=== PATIENT | female | born 1940 | race Caucasian/White ===

== ENCOUNTER 2022-05-21 09:15 | Outpatient (CLI) | payer MEDICARE, SELFPAY | END 2022-05-21 09:16 | disposition home or self-care (01) | LOC: NFLDREF 05-22 07:02 | PROVIDERS: PCP Family Medicine; Referring Provider Family Medicine; Visit Provider Family Medicine | DX: E78.00 Pure hypercholesterolemia, unspecified (principal); E55.9 Vitamin D deficiency, unspecified; Z79.1 Long term (current) use of non-steroidal anti-inflammatories (NSAID) | CPT/HCPCS: 80053; 80061; 82306 ==

== ENCOUNTER 2022-10-27 13:44 | Outpatient (CLI) | payer MEDICARE, SELFPAY ==
--- NOTE | 2022-10-27 14:00 | CRLHL7_ITS ---
For Patients: As a result of the Century Cures Act, medical imaging exams and procedure reports are released immediately into your electronic medical record. You may view this report before your referring provider. If you have questions, please contact your health care provider. LEFT SCREENING MAMMOGRAM WITH COMPUTER-AIDED DETECTION AND TOMOSYNTHESIS TECHNIQUE: CC and MLO views were obtained. These mammographic images have been obtained using full-field digital technique. These mammographic images were interpreted with the benefit of computer-aided detection. Breast Tomosynthesis was used in this interpretation. COMPARISON FILM: 11/03/20, 01/29/19, 10/29/16. FINDINGS: The breasts are heterogeneously dense, which may obscure small masses IMPRESSION: There is no radiographic evidence for malignancy. ASSESSMENT: BI-RADS Category 1: Negative RECOMMENDATION: Routine screening mammogram in 1 year. A lay language report of this examination will be provided to the patient. Duke Maya M.D. Diagnostic/Nuclear Medicine Radiologist [email or web address] NATO/Dictated by: Duke Maya MD @ 10/28/2022 8:17:00 AM (Electronically Signed)
== END 2022-10-27 13:45 | disposition home or self-care (01) ==
LOC: MAMMO 13:45
PROVIDERS: PCP Family Medicine; Visit Provider Family Medicine
DX: Z12.31 Encounter for screening mammogram for malignant neoplasm of breast (principal); R92.2 Inconclusive mammogram
CPT/HCPCS: 77063; 77067

== ENCOUNTER 2024-07-02 19:52 | Emergency (ER) | payer MEDICARE, SELFPAY ==
--- OUTSIDE RECORDS SUMMARY | 2024-07-02 19:56 | XMS_ITS | Clinical Summary ---
Author Organization [facility] Address [address] [place] [address] Care Team Providers Care Carpet Binder Name Role Phone Mecca Cunningham MD Primary Care Provider + Allergies No known active allergies Medications No known medications Active Problems Problem Noted Date Diagnosed Date Diarrhea 03/17/2011 Overview (04/20/2011): Colonoscopy 03/2011 normal, recommend EGD. EGD 04/2011 normal Social History Tobacco Use Types Packs/Day Years Used Date Smoking Tobacco: Never Smokeless Tobacco: Never Tobacco Cessation:Counseling Given: Yes Alcohol Use Standard Drinks/Week Comments Not Asked 0 (1 standard drink = 0.6 oz pur e alcohol) Comments Unknown Sex and Gender Information Value Date Recorded Sex Assigned at Not on file Legal Sex Female 8:14 AM OUTPATIENT PHYSICAL THERAPIST Gender Identity Not on file Sexual Orientation Not on file Obstetrics History Last Filed Vital Signs Vital Sign Reading Time Taken Comments Blood Pressure 126/83 07/04/2015 4:40 PM CDT Pulse 78 07/04/2015 4:40 PM CDT Temperature 37.3 C (99.2 F) 07/04/2015 4:40 PM CDT Respiratory Rate - - Oxygen Saturation 98% 07/04/2015 4:40 PM CDT Inhaled Oxygen Concentration - - Weight 59.5 kg (131 lb 3.2 oz) 07/04/2015 4:40 P M CDT Height 161.3 cm (5' 3.5) 07/04/2015 4:40 PM CDT Body Mass Index 22.87 07/04/2015 4:40 PM CDT Plan of Treatment Health Maintenance Due Date Last Done Comments Tdap 09/12/1950 Depression screening for age 12+ 1951 Tetanus booster 1959 Pneumococcal series for age 50+ (1 of 1 - PCV) 09/12/1989 Zoster (shingles) series for age 50+ (1 of 2) 09/12/1989 DEXA/DXA scan for age 65+ 09/12/2004 RSV vaccine for adults or pr egnancy (1 - 1-dose 75+ series) 09/12/2014 BMI (ht and wt on same day) for age 18+ 07/03/2016 07/04/2015 COVID-19 vaccine series (2023- season) 2023 12/12/2020, 04/30/2020, 04/09/2020 Influenza Vaccine (Season Ended) 2024 Insurance [employer] MED[employer]ARE ADVANTAGE MR Care Teams Carpet Binder Relationship Specialty Start Date End Date Mecca Cunningham MD [address] [place] [address] PCP - General Family Practice 02/03/21
--- OUTSIDE RECORDS SUMMARY | 2024-07-02 19:56 | XMS_ITS | Encounter Summary ---
Author Organization [facility] Address [address] [place] [address] Care Team Providers Care Supervisor Rolling Room Name Role Phone Linn Robbins M.D. Primary Care Provider +1- [phone] Encounter Details Date Type Department Care Team (Late st Contact Info) Description 05/11/2004 Historical Ophthalmology RST OPH Philip Starr O.D., Ph.D. 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 - 05/11/2004 12:00 AM CST Eye General CHIEF COMPLAINT Cataract evaluation and general eye exam for glasses HISTORY OF PRESENT ILLNESS Patient referred for cataract evaluation. She also expresses interest in making sure her glass prescription is correct. She notes that sometimes she prefers her old glasses for distance. She expressed this discontent with her glasses with her hometown physician who made adjustments. She felt that it did not help and when she talked to her physician about this he expressed the problem was cataracts. She is seen every 6 months at home for Pressure checks, she is using Travatan drops for this. Shenotes her overall vision has diminished over the past 2 years, especially with near vision. She is sensitive to light. She treats her dry eyes with warm compresses and Genteal ointment. She has intermittent floaters. Denies flashes of light and diplopia. IMPRESSION / REPORT / PLAN #1 Hx of apparent ocular hypertension Plan: Cup/disc is normal, IOP's in normal range now, but she is on Travatan. She wants to switch care to . Pt will finish current Travatan, then D/C for one month. Then RTC to for VA/TA. #2 Meibomian gland dysfunction both eyes. Plan: gave patient eyelid hygiene instructions. #3 Refractive error (myopic astigmatism, presbyopia). Plan: spectacle prescription (Refraction 2) given. 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 #3 Refractive error (myopic astigmatism, presbyopia). CDM Reports - EYEGEN Id: [id number] Status: Fnl documented in this encounter Plan of Treatment Upcoming Encounters Date Type Department Care Team (Latest Contact Info) Description 10/08/2024 2:20 PM CDT Comprehensive Visit Department of Family Medicine, [facility], in [address] [phone] Linn Robbins M.D. [address] [place] [phone] Discharge Disposition: Home or Self Care 10/08/2024 2:45 PM CDT Office Visit Department of Family Medicine, [facility], in [address] [phone] Linn Robbins M.D. [address] [place] [phone] Discharge Disposition: Home or Self Care documented as of this encounter Visit Diagnoses Not on filedocumented in this encounter Care Teams Supervisor Rolling Room Relationship Specialty Start Date End Date Linn Robbins M.D. [address] [place] [phone] PCP - General Family Medicine 09/12/23 documented as of this encounter
--- OUTSIDE RECORDS SUMMARY | 2024-07-02 19:56 | XMS_ITS | Encounter Summary ---
Author Organization [facility] Address [address] [place] [address] Care Team Providers Care Title Insurance Examiner Name Role Phone Linn Robbins M.D. Primary Care Provider +1- [phone] Encounter Details Date Type Department Care Team (Late st Contact Info) Description 04/30/2005 Historical Ophthalmology RST OPH Philip Starr O.D., Ph.D. 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 - 04/30/2005 12:00 AM CST Eye Subsequent Visit HISTORY OF PRESENT ILLNESS Vision seems better, can read again. Continues to use artificial tears during the day every 2 hr both eyes, and artificial tear ointment at night. IMPRESSION / REPORT / PLAN #1 Ocular hypertension Plan: Resume Travatan 1 drop at bedtime both eyes #2 Dry eye #3 Superficial punctate keratitis Plan: Continue Genteal artificial tears during day and ointment at night #4 Refractive error (myopic astigmatism, presbyopia). Plan: spectacle prescription (Refraction 1) given. Change left lens. RTC 3 mth to recheck IOP and corneas. DIAGNOSIS #1 Ocular hypertension #2 Dry eye #3 Superficial punctate keratitis #4 Refractive error (myopic astigmatism, presbyopia). CDM Reports - EYESV Id: [id number] Status: Fnl documented in this encounter Plan of Treatment Upcoming Encounters Date Type Department Care Team (Latest Contact Info) Description 10/08/2024 2:20 PM CDT Comprehensive Visit Department of Family Medicine, [facility], [address] [address] Linn Robbins M.D. [address] [place] [phone] Discharge Disposition: Home or Self Care 10/08/2024 2:45 PM CDT Office Visit Department of Family Medicine, [facility], [address] [address] Linn Robbins M.D. [address] [place] [phone] Discharge Disposition: Home or Self Care documented as of this encounter Visit Diagnoses Not on filedocumented in this encounter Care Teams Title Insurance Examiner Relationship Specialty Start Date End Date Linn Robbins M.D. [address] [place] [phone] PCP - General Family Medicine 09/12/23 documented as of this encounter
--- OUTSIDE RECORDS SUMMARY | 2024-07-02 19:56 | XMS_ITS | Encounter Summary ---
Author Organization [facility] Address [address] [place] [address] Care Team Providers Care Rail Car Repairman Name Role Phone Linn Robbins M.D. Primary Care Provider +1- [phone] Encounter Details Date Type Department Care Team (Late st Contact Info) Description 03/17/2006 Historical Ophthalmology RST OPH Philip Starr O.D., Ph.D. 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 - 03/17/2006 8:50 AM CST Eye General HISTORY OF PRESENT ILLNESS Here to have corneas checked and IOPs. Using Travatan HS both eyes and Genteal artificial tears approx bid both eyes during the day with Genteal emily at night. Denies flashes, new floaters, diplopia, eye pain. Near vision somewhat more difficult. IMPRESSION / REPORT / PLAN #1 Refractive error (myopic astigmatism, presbyopia). Plan: spectacle prescription (Refraction 2) given. #2 Ocular hypertension, with pressure in normal range with Travatan Plan: Continue Travatan 1 drop each eye bedtime. Optic discs normal #3 Meibomian gland dysfunction both eyes. Plan: gave patient eyelid hygiene instructions and sheet ( # 4113-02). #4 Cataract Plan: Monitor RTC 1 yr or PRN DIAGNOSIS #1 Refractive error (myopic astigmatism, presbyopia). #2 Ocular hypertension, with pressure in normal range with Travatan #3 Meibomian gland dysfunction both eyes. #4 Cataract CDM Reports - EYEGEN Id: [id number] Status: Fnl documented in this encounter Plan of Treatment Upcoming Encounters Date Type Department Care Team (Latest Contact Info) Description 10/08/2024 2:20 PM CDT [facility] [address] [phone] Linn Robbins M.D. [address] [place] [phone] Discharge Disposition: Home or Self Care 10/08/2024 2:45 PM CDT Office Visit Department of Family Medicine, [facility], in [address] [phone] Linn Robbins M.D. [address] [place] [phone] Discharge Disposition: Home or Self Care documented as of this encounter Visit Diagnoses Not on filedocumented in this encounter Care Teams Rail Car Repairman Relationship Specialty Start Date End Date Linn Robbins M.D. [address] [phone] PCP - General Family Medicine 09/12/23 documented as of this encounter
--- OUTSIDE RECORDS SUMMARY | 2024-07-02 19:56 | XMS_ITS | Encounter Summary ---
Author Organization [facility] Address [address] [place] [address] Care Team Providers Care Boot Lace Cutter Machine Name Role Phone Linn Robbins M.D. Primary Care Provider +1- [phone] Encounter Details Date Type Department Care Team (Late st Contact Info) Description 04/02/2005 Historical Ophthalmology RST OPH Philip Starr O.D., Ph.D. 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 - 04/02/2005 12:00 AM CST Eye Subsequent Visit HISTORY OF PRESENT ILLNESS Insurance caused her to switch from Travatan to Xalatan on 03/01/05. Noted after one week that vision seems blurred far and near. Hasn't checked one eye vs the other. Discontinued Xalatan on 03/24/05 and resumed Travatan due to change in insurance coverage.. IMPRESSION / REPORT / PLAN #1 Blurred vision #2 Superficial punctate keratitis Plan: Discontinue Travatan, use artificial tears 4 X daily RTC to wlb one week to check. DIAGNOSIS #1 Blurred vision #2 Superficial punctate keratitis CDM Reports - EYESV Id: [id number] Status: Fnl documented in this encounter Plan of Treatment Upcoming Encounters Date Type Department Care Team (Latest Contact Info) Description 10/08/2024 2:20 PM CDT Comprehensive Visit Department of Family Medicine, [facility], in [address] [phone] Linn Robbins M.D. [address] [place] [phone] Discharge Disposition: Home or Self Care 10/08/2024 2:45 PM CDT Office Visit Department of Family Medicine, [facility], in [address] [phone] Linn Robbins M.D. [address] [place] [phone] Discharge Disposition: Home or Self Care documented as of this encounter Visit Diagnoses Not on filedocumented in this encounter Care Teams Boot Lace Cutter Machine Relationship Specialty Start Date End Date Linn Robbins M.D. [address] [place] [phone] PCP - General Family Medicine 09/12/23 documented as of this encounter
--- OUTSIDE RECORDS SUMMARY | 2024-07-02 19:56 | XMS_ITS | Encounter Summary ---
Author Organization [facility] Address [address] [place] [address] Care Team Providers Care Thermite Welder Name Role Phone Linn Robbins M.D. Primary Care Provider +1- [phone] Encounter Details Date Type Department Care Team (Late st Contact Info) Description 09/03/2004 Historical Ophthalmology RST OPH Philip Starr O.D., Ph.D. 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 - 09/03/2004 12:00 AM CDT Eye General CHIEF COMPLAINT ocular hypertension follow up HISTORY OF PRESENT ILLNESS D/C Travatan July 24, 2004. IMPRESSION / REPORT / PLAN #1 Ocular hypertension Plan: Intraocular pressures are just higher than normal range with no drops, but corneas are thinner than normal, so effective IOP is even higher. Based on Ocular hypertension treatment study results, we will resume Travatan 1 drop HS both eyes. RTC 1 yr DIAGNOSIS #1 Ocular hypertension CDM Reports - EYEGEN Id: [id number] Status: Fnl documented in this encounter Plan of Treatment Upcoming Encounters Date Type Department Care Team (Latest Contact Info) Description 10/08/2024 2:20 PM CDT Comprehensive Visit Department of Family Medicine, [facility], [address] [phone] Linn Robbins M.D. [address] [place] [phone] Discharge Disposition: Home or Self Care 10/08/2024 2:45 PM CDT Office Visit Department of Family Medicine, [facility], in [address] [phone] Linn Robbins M.D. [address] [place] [phone] Discharge Disposition: Home or Self Care documented as of this encounter Visit Diagnoses Not on filedocumented in this encounter Care Teams Thermite Welder Relationship Specialty Start Date End Date Linn Robbins M.D. [address] [place] [phone] PCP - General Family Medicine 09/12/23 documented as of this encounter
--- OUTSIDE RECORDS SUMMARY | 2024-07-02 19:56 | XMS_ITS | Encounter Summary ---
Author Organization [facility] Address [address] [place] [address] Care Team Providers Care Traffic Control Officer Name Role Phone Linn Robbins M.D. Primary Care Provider +1- [phone] Encounter Details Date Type Department Care Team (Late st Contact Info) Description 04/09/2005 Historical Ophthalmology RST OPH Philip Starr O.D., Ph.D. Social History Tobacco Use Types Packs/Day Years Used Date Smoking Tobacco: Never Assessed Comments Unknown Sex and Gender Information Value Date Recorded Sex Assigned at Female 11/28/2017 2:01 PM CDT Legal Sex Female 9:49 AM EXERCISE SPECIALIST Gender Identity Female 11/28/2017 2:01 PM CDT Sexual Orientation Straight 10/02/2023 1: 27 PM CDT documented as of this encounter Progress Notes * Philip Starr O.D., Ph.D. - 04/09/2005 12:00 AM CST Eye Subsequent Visit HISTORY OF PRESENT ILLNESS Thinks eyes feel better now. IMPRESSION / REPORT / PLAN #1 Superficial punctate keratitis Plan: Improving. Continue artificial tears during the day and ointment at bedtime. RTC 2-3 wks to wlb to recheck. Continue no Travatan DIAGNOSIS #1 Superficial punctate keratitis CDM Reports - EYESV Id: [id number] Status: Fnl documented in this encounter Plan of Treatment Upcoming Encounters Date Type Department Care Team (Latest Contact Info) Description 10/08/2024 2:20 PM CDT Comprehensive Visit Department of Family [facility], [facility], [address] [phone] Linn Robbisn M.D. [address] [place] [phone] Discharge Disposition: Home or Self Care 10/08/2024 2:45 PM CDT Office Visit Department of Family Medicine, [facility], in [address] [phone] Linn Robbins M.D. [address] [place] [phone] Discharge Disposition: Home or Self Care documented as of this encounter Visit Diagnoses Not on filedocumented in this encounter Care Teams Traffic Control Officer Relationship Specialty Start Date End Date Linn Robbins M.D. [address] [place] [phone] PCP - General Family Medicine 09/12/23 documented as of this encounter
--- OUTSIDE RECORDS SUMMARY | 2024-07-02 19:57 | XMS_ITS | Encounter Summary ---
Author Organization [facility] Address [address] [place] [address] Care Team Providers Care Air Bag Builder Name Role Phone Linn Robbins M.D. Primary Care Provider +1- [phone] Encounter Details Date Type Department Care Team (Late st Contact Info) Description 11/23/2010 Historical Ophthalmology RST OPH Philip Starr O.D., Ph.D. 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 - 11/23/2010 1:11 PM CDT Eye General HISTORY OF PRESENT ILLNESS Has had glasses for three years and thinks needs more power for reading. Has history of dry eyes and uses PRN artificial tears. Uses Travatan daily. No flashes, floaters, diplopia or ocular pain. IMPRESSION / REPORT / PLAN #1 Refractive error (myopic astigmatism, presbyopia). Plan: Minimal change in spectacle prescription recommended, spectacle prescription (Refraction 1) given. #2 Meibomian gland dysfunction both eyes. Plan: use artificial tears prn, gave patient eyelid hygiene instructions. #3 Ocular hypertension Plan: Continue Travatan 1 drop each eye bedtime. Optic discs normal #4 Cataract, mildly visually significant Plan: Monitor Recommend RTC 1 yr DIAGNOSIS #1 Refractive error (myopic astigmatism, presbyopia). #2 Meibomian gland dysfunction both eyes. #3 Ocular hypertension #4 Cataract, mildly visually significant CDM Reports - EYEGEN Id: [id number] Status: Fnl documented in this encounter Plan of Treatment Upcoming Encounters Date Type Department Care Team (Latest Contact Info) Description 10/08/2024 2:20 PM CDT Comprehensive Visit Department of Family Medicine, [facility], [address] [phone] Linn Robbins M.D. [address] [place] [phone] Discharge Disposition: Home or Self Care 10/08/2024 2:45 PM CDT Office Visit Department of Family Medicine, [facility], in [address] [phone] Linn Robbins M.D. [address] [place] [phone] Discharge Disposition: Home or Self Care documented as of this encounter Visit Diagnoses Not on filedocumented in this encounter Care Teams Air Bag Builder Relationship Specialty Start Date End Date Linn Robbins M.D. [address] [place] [phone] PCP - General Family Medicine 09/12/23 documented as of this encounter
--- OUTSIDE RECORDS SUMMARY | 2024-07-02 19:57 | XMS_ITS | Encounter Summary ---
Author Organization [facility] Address [address] [place] [address] Care Team Providers Care Correctional Substance Abuse Counselor Name Role Phone Linn Robbins M.D. Primary Care Provider +1- [phone] Reason for Referral * Outpatient (Routine) - Authorized Specialty Diagnoses / Procedures Referred By Lilian roach Referred To Contact Dermatology Diagnoses Screening Examination Skin Cancer Ashleigh Bell M.D. [address] [place] [phone] Phone: tel: fax: [facility] Region Referral ID Status Reason Start Date Expiration Date V isits Requested Visits Authorized [id number] Authorized 06/27/2024 12/27/2025 1 1 Reason for Visit * Reason Comments Pre-op Exam Hip Referral Derm froilan Infante ed cheeks * Appointment Request (Routine) - Closed Specialty Diagnoses / Procedures Referred By Contteo t Referred To Contact Family Medicine Referral ID Status Reason Start Date Expiration Date Visits Re quested Visits Authorized [id number] Closed 06/27/2024 09/27/2025 1 1 Encounter Details Date Type Department Care Team (Latest Contact Info) Description 06/27/2024 3:00 PM CDT Office Visit Department of Family Medicine, [facility], in [address] [phone] Ashleigh Bell M.D. [address] [place] [phone] Preoperative Exam (Primary Dx); Primary Osteoarthritis Hip Left; Screening Examination Skin Cancer Discharge Disposition: Home or Self Care Social History Tobacco Use Types Packs/Day Years Used Date Smoking Tobacco: Never Smokeless Tobacco: Never Tobacco Cessation:Counseling Given: Not Answered Alcohol Use Standard Drinks/Week Comments Yes 1 (1 standard drink = 0.6 oz pur e alcohol) [facility] Answer Date Recorded In the past 12 months has e [employer], oil, or water [employer] threatened to shut off services in your home? No 10/02/2023 Humiliation, Afraid, Rape, and Kick questionnair e Answer Date Recorded Within the last year, have y ou been afraid of your partner or ex-partner? No 10/07/2023 Within the last year, have y ou been humiliated or emotionally abused in other ways by your partner or ex-partner? No Within the last year, have y ou been kicked, hit, slapped, or otherwise physically hurt by your partner or ex-partner? No 10/07/2023 Within the last year, have y ou been raped or forced to have any kind of sexual activity by your partner or ex-partner? No 10/07/2023 PHQ-2 Answer Date Recorded PHQ-2 Score 0 05/22/2024 Exercise Vital Sign Answer Date Recorde d On average, how many days pe r week do you engage in moderate to strenuous exercise (like a brisk walk)? 7 days 10/02/2023 On average, how many minutes do you engage in exercise at this level? 70 min 10/02/2023 Hunger Vital Sign Answer Date Recorded Within the past 12 months, y ou worried that your food would run out before you got the money to buy more. Never true 10/02/19 Within the past 12 months, t he food you bought just didn't last and you didn't have money to get more. Never true 10/02/2023 PRAPARE - Transportation Answer Date Re corded In the past 12 months, has l ack of transportation kept you from medical appointments or from getting medications? No 09/05 In the past 12 months, has l ack of transportation kept you from meetings, work, or from getting things needed for daily living? No 10/02/2023 Nutrition Answer Date Recorded On average, how many serving s of fruits and vegetables do you eat per day (serving size is equal to 1 cup or approximately the size of a tennis ball)? 5 or more 10/02/2023 Dental Answer Date Recorded Dental: Regular Dentist Yes 10/02/19 Employment Answer Date Recorded Employment status Retired 10/02/2023 Housing Stability Answer Date Recorded What is your living situation today? 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 Gender Identity Female 11/28/2017 2:01 PM CDT Sexual Orientation Straight 10/02/2023 1: 27 PM CDT documented as of this encounter Last Filed Vital Signs Vital Sign Reading Time Taken Comments Blood Pressure 134/80 06/27/2024 2:55 PM CDT Pulse 80 06/27/2024 2:55 PM CDT Temperature 36.7 C (98.1 F) 06/27/2024 2:55 PM CDT Respiratory Rate - - Oxygen Saturation 98% 06/27/2024 2:55 PM CDT Inhaled Oxygen Concentration - - Weight 56.2 kg (123 lb 14.4 oz) 06/27/2024 2:55 PM CDT Height 159 cm (5' 2.6) 06/27/2024 2:55 PM CDT Body Mass Index 22.23 06/27/2024 2:55 PM CDT documented in this encounter Patient Instructions * Patient Instructions* Ashleigh Bell M.D. - 06/27/2024 3:00 PM CDT Preoperative instructions discussed and understanding indicated: Follow all preop hospital/center instructions. IF TAKING ASPIRIN/NSAIDs/Ibuprofen: Stop aspirin/NSAIDs 1 week before procedure and resume 1 dayafter the procedure unless instructed otherwise. IF TAKING SUPPLEMENTS: Stop all supplements 1 week prior to procedure and may resume 1 day afterthe procedure unless instructed otherwise. Okay to continue Tylenol as needed through the surgery documented in this encounter Plan of Treatment Upcoming Encounters Date Type Department Care Team (Latest Contact Info) Description 10/08/2024 2:20 PM CDT Comprehensive Visit Department of Family Medicine, [facility], [address] [phone] Linn Robbins M.D. [address] [place] [phone] Discharge Disposition: Home or Self Care 10/08/2024 2:45 PM CDT Office Visit Department of Family Medicine, [facility], [address] [phone] Linn Robbins M.D. [address] [place] [phone] Discharge Disposition: Home or Self Care Scheduled Referrals Name Type Priority Associated Diagnoses Orde r Schedule Dermatology - Skin check consult (clinic) Outpatient Referral Routine Screening Examination Skin Cancer Expected: 06/27/2024, Expires: 09/26/2025 documented as of this encounter Results * (ABNORMAL) Basic Metabolic Panel (06/27/2024 4:04 PM CDT) Potassium, P 5.2 3.6 - 5.2 mmol/L 06/27/2024 4:22 PM CDT CNFL Sodium, P 139 135 - 145 mmol/L 06/27/2024 4:22 PM CDT CNFL Chloride, P 104 98 - 107 mmol/L 06/27/2024 4:22 PM CDT CNFL Bicarbonate, P 29 22 - 29 mmol/L 06/27/2024 4:22 PM CDT CNFL Anion Gap, P 6(L) 7 - 15 06/27/2024 4:22 PM CDT CNFL BUN (Blood Urea Nitrogen), P 26(H) 6 - 21 mg/dL 06/27/2024 4:22 PM CDT CNFL Creatinine 0.84 0.59 - 1.04 mg/dL 06/27/2024 4:22 PM CDT CNFL Estimated GFR (eGFR) 68 >=60 mL/min/BSA 06/27/2024 4:22 PM CDT CNFL Comment: Estimated GFR calculated using the 2020 CKD_EPI creatinine equation. Calcium, Total, P 10.1 8.8 - 10.2 mg/dL 06/27/2024 4:22 PM CDT CNFL Glucose, P 96 70 - 140 mg/dL 06/27/2024 4:22 PM CDT CNFL Blood (Blood, Venous) 06/27/2024 4:04 PM CDT 06/27/2024 4:05 PM CDT us Ashleigh Bell M.D. LAB BLOOD ADD-ON Final Resu lt [facility] [address] [place] [address], [facility] CNFL [place] [address] * CBC with Differential, Blood (06/27/2024 4:04 PM CDT) Hemoglobin 13.1 11.6 - 15.0 g/dL 06/27/2024 4:08 PM CDT CNFL Hematocrit 41.2 35.5 - 44.9 % 06/27/2024 4:08 PM CDT CNFL Erythrocytes 4.61 3.92 - 5.13 x10(12)/L 06/27/2024 4:08 PM CDT CNFL MCV 89.4 78.2 - 97.9 fL 06/27/2024 4:08 PM CDT CNFL RBC Distrib Width 14.1 12.2 - 16.1 % 06/27/2024 4:08 PM CDT CNFL Platelet Count 225 157 - 371 x10(9)/L 06/27/2024 4:08 PM CDT CNFL Leukocytes 7.2 3.4 - 9.6 x10(9)/L 06/27/2024 4:08 PM CDT CNFL Neutrophils 3.49 1.56 - 6.45 x10(9)/L 06/27/2024 4:08 PM CDT CNFL Lymphocytes 3.00 0.95 - 3.07 x10(9)/L 06/27/2024 4:08 PM CDT CNFL Monocytes 0.57 0.26 - 0.81 x10(9)/L 06/27/2024 4:08 PM CDT CNFL Eosinophils 0.07 0.03 - 0.48 x10(9)/L 06/27/2024 4:08 PM CDT CNFL Basophils <0.04 0.01 - 0.08 x10(9)/L 06/27/2024 4:08 PM CDT CNFL Blood (Blood, Venous) 06/27/2024 4:04 PM CDT 06/27/2024 4:05 PM CDT us Ashleigh Bell M.D. LAB BLOOD ADD-ON Final Resu lt [facility] [address] [place] [phone], [facility] CNFL [facility] in [address] [address] documented in this encounter Visit Diagnoses Diagnosis Preoperative Exam- Primary Primary Osteoarthritis Hip Left Screening Examination Skin Cancer documented in this encounter Care Teams Correctional Substance Abuse Counselor Relationship Specialty Start Date End Date Linn Robbins M.D. [address] [place] [phone] PCP - General Family Medicine 09/12/23 documented as of this encounter
--- OUTSIDE RECORDS SUMMARY | 2024-07-02 19:57 | XMS_ITS | Encounter Summary ---
Author Organization [facility] Address [address] [place] [address] Care Team Providers Care Dry Wall Installer Name Role Phone Linn Robbins M.D. Primary Care Provider +1- [phone] Reason for Referral * Outpatient (Routine) - Closed Specialty Diagnoses / Procedures Referred By Contac t Referred To Contact Diagnoses Pain Knee Left Procedures DX Knee Left 3 Views Linn Robbins M.D. [address] [place] [phone] Phone: tel: fax: [facility] Region Referral ID Status Reason Start Date Expiration Date Visits Re quested Visits Authorized [id number] Closed 05/29/2024 08/29/2025 1 1 * Outpatient (Routine) - Closed Specialty Diagnoses / Procedures Referred By Contac t Referred To Contact Diagnoses Pain Low Back Unspecified Pain Sacroiliac Procedures DX Lumbar Spine 2-3 Views Linn Robbins M.D. [address] [place] [phone] Phone: tel: fax: [facility] Referral ID Status Reason Start Date Expiration Date Visits Re quested Visits Authorized [id number] Closed 05/29/2024 08/29/2025 1 1 Reason for Visit * Reason Comments Back and leg issues Did have a fall last February. Fell on steps and thinks she did hit her lower back. 2 weeks later she started have pain in her buttocks down through her legs. No shooting pain but constant. Walks can help and does take naproxen. Did have vein surgery by Jonna in December but is still having pain in the right leg from this. Going uphill and steps hurts worse in her left leg from knee up to her hip and also any weight bearing. Rated at an 8 for pain when going up stairs. * Appointment Request (Routine) - Closed Specialty Diagnoses / Procedures Referred By Lilian roach Referred To Contact Family Medicine Referral ID Status Reason Start Date Expiration Date Visits Re quested Visits Authorized [id number] Closed 05/18/2024 08/18/2025 1 1 Encounter Details Date Type Department Care Team (Latest Contact Info) Description 05/29/2024 10:00 AM CDT Office Visit Department of Family Medicine, [facility], in [address] [phone] Linn Robbins M.D. [address] [place] [phone] Primary Osteoarthritis Hip Left (Primary Dx); Pain Low Back Unspecified; Pain Sacroiliac; Pain Knee Left Discharge Disposition: Home or Self Care Social History Tobacco Use Types Packs/Day Years Used Date Smoking Tobacco: Never Smokeless Tobacco: Never Alcohol Use Standard Drinks/Week Comments Yes 1 (1 standard drink = 0.6 oz pur e alcohol) [facility] Utilities Answer Date Recorded In the past 12 months has th e [employer], gas, oil, or water [employer] threatened to shut off services in your [...] your living situation today? 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 - 05/29/2024 10:00 AM CDT DATE OF VISIT: 05/29/2024 SUBJECTIVE CHIEF COMPLAINT / REASON FOR VISIT Agata Espana is a 83 y.o. female who presents for evaluation of Back and leg issues (Did have afall last February. Fell on steps and thinks she did hit her lower back. 2 weeks later she started have pain in her buttocks down through her legs. No shooting pain but constant. Walks can help and does take naproxen. Did have vein surgery by Jonna in December but is still having pain in the right leg from this. Going uphill and steps hurts worse in her left leg from knee up to her hip and also any weight bearing. Rated at an 8 for pain when going up stairs. ). The patient verbally consented to an audio recording of their visit to assist with the completion of documentation. History of Present Illness Mrs. Agata Espana is an 83 year old female who presents with back and leg pain following a fall. She experienced back and leg pain following a fall on March 05, when she slipped on ice and landed on her back. Initially, there was no significant pain, and she continued her walk. However, approximately two weeks later, she began experiencing aching pain in the buttocks and lower legs, severe enough to impair her ability to walk for a few days. The pain improved with naproxen and Tylenol but recurred later. The pain is described as an intense ache in the buttocks, radiating down both legs, exacerbated by weight-bearing activities such as walking up or down stairs and on inclines. She notes difficulty performing activities like cutting toenails, tying shoes, and picking up items from the floor due to pain, particularly on the inside of the leg. A persistent low back ache is present, especially in themorning, which improves slightly with walking but never fully resolves. She reports issues with her right leg following a vein procedure on December 07. Post-procedure, she experiences aching and pulling pain in the leg, particularly when walking, which improves with rest. There is a hard area in the leg where an injection was administered, but the pain is less intensethan before the procedure. She has a history of arthritis in the knee, previously managed with stem cell treatment, providing relief for seven years. She now experiences knee pain, particularly when weight-bearing. OBJECTIVE VITAL SIGNS BP 158/88 (BP Location: Left arm, Patient Position: Sitting, Cuff Size: Regular) Pulse 75 Temp 36.4 ??C Wt 55.4 kg SpO2 98% BMI 21.78 kg/m?? Physical Exam Constitutional General: She is not in acute distress. Appearance: Normal appearance. Pulmonary Effort: Pulmonary effort is normal. Musculoskeletal Comments: There is tenderness to palpation over the right SI joint. Left hip with limited flexion compared to the right. She experiences severe pain with internal rotation of the left hip. No swelling or bruising of the left hip or knee. Gait normal. Neurological Mental Status: She is alert. Mental status is at baseline. Psychiatric Mood and Affect: Mood normal. Behavior: Behavior normal. ASSESSMENT / PLAN #1 Primary Osteoarthritis Hip Left #2 Pain Low Back Unspecified #3 Pain Sacroiliac #4 Pain Knee Left Patient has chronic left hip pain due to osteoarthritis, which is exacerbated following a fall in February. She also seems to have pain coming from her SI joints, particularly on the right, after thesame fall. Will obtain updated x- rays today. She is encouraged to follow up with Orthopedics and she prefers to see Dr. Rahman in [place], which is closer to her home. She declines need for physical therapy referral today. documented in this encounter Plan of Treatment Upcoming Encounters Date Type Department Care Team (Latest Contact Info) Description 10/08/2024 2:20 PM CDT Comprehensive Visit Department of Family Medicine, [facility], [address] [phone] Linn Robbins M.D. [address] [place] [phone] Discharge Disposition: Home or Self Care 10/08/2024 2:45 PM CDT Office Visit Department of Family [facility], [facility], in [address] [phone] Linn Robbins M.D. [address] [place] [phone] Discharge Disposition: Home or Self Care documented as of this encounter Results * DX Lumbar Spine 2-3 Views (05/29/2024 10:49 AM CDT) Anatomical Region Laterality Modality Lumbar Spine, Musculoskeleta l RST LOS, Neuroradiology ARZ LOS, Muskuloskeletal FLA LOS N/A Digital Radiography Impressions 05/29/2024 11:04 AM CDT There are 5 lumbar type vertebra. The lumbar vertebral body heights are maintained. Grade 1 anterolisthesis L4 on L5. Advanced degenerative disc disease at L4-L5. Lower lumbar facet arthropathy. Mild degenerative changes both SI joints and right hip. Moderate degenerative changes left hip. No pelvic fracture. Calcified uterine fibroids and pelvic phleboliths. Narrative 05/29/2024 11:04 AM CDT EXAM: DX HIPS AND PELVIS BILATERAL 5+ VIEWS, DX LUMBAR SPINE 2-3 VIEWS us Linn Robbins M.D. [facility] PRO CEDURES Final Result * DX Knee Left 3 Views (05/29/2024 10:47 AM CDT) Anatomical Region Laterality Modality Lower Extremity, Knee, Muscu loskeletal RST LOS, Musculoskeletal ARZ LOS, Muskuloskeletal FLA LOS Left Digit al Radiography Impressions 05/29/2024 11:04 AM CDT Moderate tricompartmental osteoarthritis greatest in the lateral compartment. Narrative 05/29/2024 11:04 AM CDT EXAM: DX KNEE LEFT 3 VIEWS COMPARISON: Radiograph 08/25/2015 FINDINGS: No fracture. No dislocation. There is moderate tricompartmental space narrowing most notably in the lateral compartment. Medial lateral compartment osteophytic spurring. Trace joint effusion. No patellar tilt or subluxation. Soft tissues are unremarkable. Procedure Note Maximo Pagan M.D. - 05/29/2024 EXAM: DX KNEE LEFT 3 VIEWS COMPARISON: Radiograph 08/25/2015 FINDINGS: No fracture. No dislocation. There is moderate tricompartmental spacenarrowing most notably in the lateral compartment. Medial lateralcompartment osteophytic spurring. Trace joint effusion. No patellar tiltor subluxation. Soft tissues are unremarkable. IMPRESSION: Moderate tricompartmental osteoarthritis greatest in the lateralcompartment. us Linn Robbins M.D. [facility] PRO CEDURES Final Result documented in this encounter Visit Diagnoses Diagnosis Primary Osteoarthritis Hip Left- Primary Pain Low Back Unspecified Pain Sacroiliac Pain Knee Left Pain Knee Left Pain Low Back Unspecified Pain Sacroiliac documented in this encounter Care Teams Dry Wall Installer Relationship Specialty Start Date End Date Linn Robbins M.D. [address] [place] [phone] PCP - General Family Medicine 09/12/23 documented as of this encounter
--- OUTSIDE RECORDS SUMMARY | 2024-07-02 19:57 | XMS_ITS | Encounter Summary ---
Author Organization [facility] Address [address] [place] [id number] Care Team Providers Care Paper Tube Cutter Name Role Phone Linn Robbins M.D. Primary Care Provider +1- [phone] Encounter Details Date Type Department Care Team (Late st Contact Info) Description 05/18/2007 Historical Ophthalmology RST OPH Philip Starr O.D., Ph.D. 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 - 05/18/2007 9:43 AM CDT Eye General HISTORY OF PRESENT ILLNESS No visual or ocular complaints. Using Travatan at night one drop each eye. Has not been using warm compresses, has forgotten about it, so she feels her lids must be doing better. Uses artificial tears 2X daily. IMPRESSION / REPORT / PLAN #1 Refractive error (myopic astigmatism, presbyopia). Plan: no change in spectacle prescription recommended, spectacle prescription (Refraction 1) given. #2 Meibomian gland dysfunction both eyes. Plan: use artificial tears prn, gave patient eyelid hygiene instructions. #3 Ocular hypertension Plan: Continue Travatan 1 drop each eye bedtime. Optic discs normal #4 Cataract Plan: Monitor Recommend RTC 1 yr HED DIAGNOSIS #1 Refractive error (myopic astigmatism, presbyopia). 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, [address] [phone] Linn Robbins M.D. [address] [place] [phone] Discharge Disposition: Home or Self Care 10/08/2024 2:45 PM CDT Office Visit Department of Family Medicine, [facility], in [address] [phone] Linn Robbins M.D. [address] [place] [phone] Discharge Disposition: Home or Self Care documented as of this encounter Visit Diagnoses Not on filedocumented in this encounter Care Teams Paper Tube Cutter Relationship Specialty Start Date End Date Linn Robbins M.D. [address] [place] [phone] PCP - General Family Medicine 09/12/23 documented as of this encounter
--- OUTSIDE RECORDS SUMMARY | 2024-07-02 19:57 | XMS_ITS | Encounter Summary ---
Author Organization [facility] Address [address] [place] [address] Care Team Providers Care Fleet Technician Name Role Phone Linn Robbins M.D. Primary Care Provider +1- [phone] Reason for Referral * Outpatient (Routine) - Closed Specialty Diagnoses / Procedures Referred By Contac t Referred To Contact Diagnoses Pain Low Back Unspecified Pain Sacroiliac Procedures DX Lumbar Spine 2-3 Views Linn Robbins M.D. [address] [place] [phone] Phone: tel: fax: [facility] Region Referral ID Status Reason Start Date Expiration Date Visits Re quested Visits Authorized [id number] Closed 05/29/2024 08/29/2025 1 1 Reason for Visit * Outpatient (Routine) - Closed Specialty Diagnoses / Procedures Referred By Contac t Referred To Contact Diagnoses Pain Low Back Unspecified Pain Sacroiliac Procedures DX Lumbar Spine 2-3 Views Linn Robbins M.D. [address] [place] [phone] Phone: tel: fax: [facility] Region Referral ID Status Reason Start Date Expiration Date Visits Re quested Visits Authorized [id number] Closed 05/29/2024 08/29/2025 1 1 Encounter Details Date Type Department Care Team (Latest Contact Info) Description 05/29/2024 10:31 AM CDT - 05/29/2024 11:59 PM CDT Hospital Encounter Department of Radiology in [address] [phone] Linn Robbins M.D. [address] [place] [phone] Pain Low Back Unspecified; Pain Sacroiliac Discharge Disposition: Home or Self Care Social History Tobacco Use Types Packs/Day Years Used Date Smoking Tobacco: Never Smokeless Tobacco: Never Alcohol Use Standard Drinks/Week Comments Yes 1 (1 standard drink = 0.6 oz pur e alcohol) [facility] Utilities Answer Date Recorded In the past 12 months has e [employer], gas, oil, or water Mobile Location, [employer] threatened to shut off services in your [...] your living situation today? 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 Bifidobacterium infantis (Align) 4 mg capsule Take 4 mg by mouth daily. CALCIUM-MAGNESIU M-ZINC ORAL Take 2 tablets by mouth daily. calcium 500 mg, Magnesium 50 mg, Zinc 10 mg, Copper 1 mg, Mangense 1 mg, and Borom 1 mg. 06/03/2014 cholecalciferol (Vitamin D3) 50 mcg (2,000 Unit) capsule Take 50 mcg by mouth daily. 05/28/2022 docosahexaenoic acid/epa (FISH OIL ORAL) Take 1,400 mg by mouth daily. krill oil 500 mg capsule Take 500 mg by mouth daily. lanolin/mineral oil/petrolatum (ARTIFICIAL TEARS OPHT) 1 drop as needed. Both eyes for dryness 06/08/2017 naproxen sodium (ALEVE/ANAPROX) 220 mg tablet Take 1-2 tablets by mouth as needed. pain 06/08/2017 documented as of this encounter Plan of Treatment Upcoming Encounters Date Type Department Care Team (Latest Contact Info) Description 10/08/2024 2:20 PM CDT Comprehensive Visit Department of Family Medicine, [facility], [address] [phone] Linn Robbins M.D. [address] [place] [phone] Discharge Disposition: Home or Self Care 10/08/2024 2:45 PM CDT Office Visit Department of Family Medicine, [facility], [address] [phone] Linn Robbins M.D. [address] [place] [phone] Discharge Disposition: Home or Self Care documented as of this encounter Procedures Procedure Name Priority Date/Time Associated Diagnosis Comments DX LUMBAR SPINE 2-3 VIEWS RAD - Routine (most inpatients and all outpatients) 05/29/2024 10:49 AM CDT Pain Low Back Unspecified Pain Sacroiliac documented in this encounter Results * DX Lumbar Spine [...] 5+ VIEWS, DX LUMBAR SPINE 2-3 VIEWS Lnin Robbins M.D. IMG DIAGNOSTIC IMAGING PRO CEDURES Final Result documented in this encounter Visit Diagnoses Diagnosis Pain Low Back Unspecified Pain Sacroiliac documented in this encounter Care Teams Fleet Technician Relationship Specialty Start Date End Date Linn Robbins M.D. [address] [place] [phone] PCP - General Family Medicine 09/12/23 documented as of this encounter
--- OUTSIDE RECORDS SUMMARY | 2024-07-02 19:57 | XMS_ITS | Encounter Summary ---
Author Organization [facility] Address [address] [place] [address] Care Team Providers Care Registered Radiation Therapist Name Role Phone Linn Robbins M.D. Primary Care Provider +1- [phone] Encounter Details Date Type Department Care Team (Late st Contact Info) Description 11/21/2009 Historical Ophthalmology RST OPH Philip Starr O.D., Ph.D. 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 - 11/21/2009 8:25 AM CDT Eye General CHIEF COMPLAINT Yearly recheck ocular hypertension, cataracts. HISTORY OF PRESENT ILLNESS Patient states that she has had increased difficulty reading in the past few months, constant, mild. Increased difficulty reading road signs for the past few months. Does not night drive, due to glare from headlights. Bothered by bright sunlight. History of dry eyes. Artificial tears helpful. Occasionally uses warm compresses. IMPRESSION / REPORT / PLAN #1 Refractive [...] visually significant CDM Reports - EYEGEN Id: [id number] Status: Fnl documented in this encounter Plan of Treatment Upcoming Encounters Date Type Department Care Team (Latest Contact Info) Description 10/08/2024 2:20 PM CDT Comprehensive Visit Department of Family Medicine, [facility], [address] [phone] Linn Robbins M.D. [address] [place] [phone] Discharge Disposition: Home or Self Care 10/08/2024 2:45 PM CDT Office Visit Department of Family Medicine, [facility], in [address] [phone] Linn Robbins M.D. [address] [place] [phone] Discharge Disposition: Home or Self Care documented as of this encounter Visit Diagnoses Not on filedocumented in this encounter Care Teams Registered Radiation Therapist Relationship Specialty Start Date End Date Linn Robbins M.D. [address] [place] [phone] PCP - General Family Medicine 09/12/23 documented as of this encounter
--- OUTSIDE RECORDS SUMMARY | 2024-07-02 19:57 | XMS_ITS | Encounter Summary ---
Author Organization [facility] Address [address] [place] [address] Care Team Providers Care Intellectual Property Lawyer Name Role Phone Linn Robbins M.D. Primary Care Provider +1- [phone] Encounter Details Date Type Department Care Team (Late st Contact Info) Description 06/02/2024 Results Follow-Up Department of Family Medicine, [facility], in [address] [phone] Linn Robbins M.D. [address] [place] [phone] DX Lumbar Spine 2-3 Views, DX Hips and Pelvis Bilateral 5+ Views Social History Tobacco Use Types Packs/Day Years Used Date Smoking Tobacco: Never Smokeless Tobacco: Never Alcohol Use Standard Drinks/Week Comments Yes 1 (1 standard drink = 0.6 oz pur e alcohol) [facility] Utilities Answer Date Recorded In the past 12 months has [employer], gas, oil, or water [employer] threatened to shut off services in your [...] your living situation today? 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 [address] [place] [phone] Discharge Disposition: Home or Self Care 10/08/2024 2:45 PM CDT Office Visit Department of Family Medicine, [facility], [address] [phone] Linn Robbins M.D. [address] [place] [phone] Discharge Disposition: Home or Self Care documented as of this encounter Visit Diagnoses Not on filedocumented in this encounter Care Teams Intellectual Property Lawyer Relationship Specialty Start Date End Date Linn Robbins M.D. [address] [place] [phone] PCP - General Family Medicine 09/12/23 documented as of this encounter
--- OUTSIDE RECORDS SUMMARY | 2024-07-02 19:57 | XMS_ITS | Encounter Summary ---
Author Organization [facility] Address [address] [place] [address] Care Team Providers Care Shirt Sewer Name Role Phone Linn Robbins M.D. Primary Care Provider +1- [phone] Encounter Details Date Type Department Care Team (Late st Contact Info) Description 07/23/2008 Historical Ophthalmology RST OPH Philip Starr O.D., Ph.D. 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 - 07/23/2008 10:51 AM CDT Eye General CHIEF COMPLAINT general eye exam; high pressures HISTORY OF PRESENT ILLNESS Patient reports visual acuity stable in both eyes over the past year. Denies flashes, new floaters,and diplopia. Denies ocular pain. IMPRESSION / REPORT / PLAN #1 Refractive error (myopic astigmatism, presbyopia). Plan: no change in spectacle prescription recommended, spectacle prescription (Refraction 1) given. #2 Meibomian gland dysfunction both eyes. Plan: use artificial tears prn, gave patient eyelid hygiene instructions. #3 Ocular hypertension Plan: Continue Travatan 1 drop each eye bedtime. Optic discs normal #4 Cataract, not visually significant Plan: Monitor Recommend RTC 1 yr DIAGNOSIS #1 Refractive error (myopic astigmatism, presbyopia). 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 [address] [place] [phone] Discharge Disposition: Home or Self Care 10/08/2024 2:45 PM CDT Office Visit Department of Family Medicine, [facility], in [address] [phone] Linn Robbins M.D. [address] [place] [phone] Discharge Disposition: Home or Self Care documented as of this encounter Visit Diagnoses Not on filedocumented in this encounter Care Teams Shirt Sewer Relationship Specialty Start Date End Date Linn Robbins M.D. [address] [place] [phone] PCP - General Family Medicine 09/12/23 documented as of this encounter
--- OUTSIDE RECORDS SUMMARY | 2024-07-02 19:57 | XMS_ITS | Encounter Summary ---
Author Organization [facility] Address [address] [place] [address] Care Team Providers Care Veneer Taping Machine Offbearer Name Role Phone Linn Robbins M.D. Primary Care Provider +1- [phone] Encounter Details Date Type Department Care Team (Late st Contact Info) Description 06/27/2024 Results Follow-Up Department of Family Medicine, [facility], in [address] [phone] Ashleigh Bell M.D. [address] [place] [phone] CBC with Differential, Blood, Basic Metabolic Panel Social History Tobacco Use Types Packs/Day Years Used Date Smoking Tobacco: Never Smokeless Tobacco: Never Alcohol Use Standard Drinks/Week Comments Yes 1 (1 standard drink = 0.6 oz pur e alcohol) [facility] Utilities Answer Date Recorded In the past 12 months has [employer], gas, oil, or water company threatened to shut off services in your [...] your living situation today? I have a [facility] place to live 10/02/2023 Comments No Sex and Gender Information Value Date Recorded Sex Assigned at Female 11/28/2017 2:01 PM CDT Legal Sex Female 9:49 AM HOBBER Gender Identity Female 11/28/2017 2:01 PM CDT Sexual Orientation Straight 10/02/2023 1: 27 PM CDT documented as of this encounter Plan of Treatment Upcoming Encounters Date Type Department Care Team (Latest Contact Info) Description 10/08/2024 2:20 PM CDT Comprehensive Visit Department of Family Medicine, [facility], [address] [phone] Linn Robbins M.D. [address] [place] [phone] Discharge Disposition: Home or Self Care 10/08/2024 2:45 PM CDT Office Visit Department of Family Medicine, [facility], [address] [phone] Linn Robbins M.D. [address] [place] [phone] Discharge Disposition: Home or Self Care documented as of this encounter Visit Diagnoses Not on filedocumented in this encounter Care Teams Veneer Taping Machine Offbearer Relationship Specialty Start Date End Date Linn Robbins M.D. [address] [place] [phone] PCP - General Family Medicine 09/12/23 documented as of this encounter
--- OUTSIDE RECORDS SUMMARY | 2024-07-02 19:57 | XMS_ITS | Clinical Summary ---
Author Organization [facility] Address [address] [place] [address] Care Team Providers Care Signal Tester Name Role Phone Linn Robbins M.D. Primary Care Provider +1- [phone] Source Comments Patient records contain information from all sites at [facility]. For routine questions regarding patient records, call [phone] during business hours, M-F 8:00 AM - 5:00 PM Central Time. Record requests for emergency care only can be directed to [phone] at any time.[facility] Allergies No known active allergies Medications lanolin/mineral oil/petrolatum (ARTIFICIAL TEARS OPHT) 1 drop as needed. Both eyes for dryness 8 Active CALCIUM-MAGNESIU M-ZINC ORAL Take 2 tablets by mouth daily. calcium 500 mg, Magnesium 50 mg, Zinc 10 mg, Copper 1 mg, Mangense 1 mg, and Borom 1 mg. 5 Active naproxen sodium (ALEVE/ANAPROX) 220 mg tablet Take 1-2 tablets by mouth as needed. pain 8 Active krill oil 500 mg capsule Take 500 mg by mouth daily. Active cholecalciferol (Vitamin D3) 50 mcg (2,000 Unit) capsule Take 50 mcg by mouth daily. 3 Active Bifidobacterium infantis (Align) 4 mg capsule Take 4 mg by mouth daily. Active acetaminophen (TylenoL 8 Hr) 650 mg ER tablet Take 1,300 mg by mouth every 8 (eight) hours. Active docosahexaenoic acid/epa (FISH OIL ORAL) Take 1,400 mg by mouth daily. 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 She has subsequently undergone evaluation without evidence of recurrence of disease. Hypercholesterolemia 01/30/2003 Encounters Date Type Department Care Team Description 06/27/2024 3:50 PM CDT - 06/27/2024 11:59 PM CDT Hospital Encounter Department of Laboratory Medicine in [address] [phone] Ashleigh Bell M.D. Preoperative Exam Discharge Disposition: Home or Self Care 06/27/2024 3:00 PM CDT Office Visit Department of Family Medicine, [facility], in [address] [phone] Ashleigh Bell M.D. Preoperative Exam (Primary Dx); Primary Osteoarthritis Hip Left; Screening Examination Skin Cancer Discharge Disposition: Home or Self Care 06/27/2024 Results Follow-Up Department of Family Medicine, [facility], in [address] [phone] Ashleigh Bell M.D. CBC with Differential, Blood, Basic Metabolic Panel 06/02/2024 Results Follow-Up Department of Family Medicine, [facility], in [address] [phone] Linn Robbins M.D. DX Lumbar Spine 2-3 Views, DX Hips and Pelvis Bilateral 5+ Views 05/29/2024 10:31 AM CDT - 05/29/2024 11:59 PM CDT Hospital Encounter Department of Radiology in [address] [phone] Linn Robbins M.D. Pain Low Back Unspecified; Pain Sacroiliac Discharge Disposition: Home or Self Care 05/29/2024 10:31 AM CDT - 05/29/2024 11:59 PM CDT Hospital Encounter Department of Radiology in [address] [phone] Linn Robbins M.D. Primary Osteoarthritis Hip Left; Pain Sacroiliac Discharge Disposition: Home or Self Care 05/29/2024 10:31 AM CDT - 05/29/2024 11:59 PM CDT Hospital Encounter Department of Radiology in [address] [phone] Linn Robbins M.D. Pain Knee Left Discharge Disposition: Home or Self Care 05/29/2024 10:00 AM CDT Office Visit Department of Family Medicine, [facility], in [address] [phone] Linn Robbins M.D. Primary Osteoarthritis Hip Left (Primary Dx); Pain Low Back Unspecified; Pain Sacroiliac; Pain Knee Left Discharge Disposition: Home or Self Care from Last 3 Months Immunizations Immunization Administration Dates Next Due H1N1 All Forms 03/23/2009 HZV (ZOSTAVAX) 06/10/2006 HepA, Unspecified 04/07/2004,07/06/1995 Influenza Split 01/21/2017, 4,12/04/2009,2005,01/17/2004,12/05/1996 Influenza high dose QV(65 ye ars or older) (PF) 12/18/2022,01/17/2022,12/03/2020 Influenza, Seasonal, Injectable 12/01/19 11,12/05/2005,01/01/2005,2003,12/05/1996 Influenza, Unspecified 01/20/2013 OPV 02/04/1974 PCV13 06/03/2014 PPSV23 01/01/2010,04/08/2004 RSV: respiratory syncytial v irus (AREXVY) recombinant vaccine 01/19/2023 RZV (SHINGRIX) 10/10/2019,05/03/2019 SARS-COV-2 (COVID-19) - PFIZ ER (Discontinued)(12 years or older) 04/30/2020,04/09/2020 Td, (Adult) Unspecified 04/14/2004,06/06/1995 Tdap 06/21/2022,10/14/2011 Ty21a (oral) 05/05/2004,07/06/1995 influenza trivalent high dos e (HD)(PF) 12/20/2023,12/07/2018,12/02/2017,2015,12/23/2014 Family History Medical History Relation Name Comments Pancreatic cancer Brother James Whipple Coronary artery disease Father 1 Surendra Tasset Other cancer Father 1 Surendra Tasset Brain tumor Coronary artery disease Father 2 Surendra Tasset Other cancer Father 2 Surendra Tasset Brain tumor Coronary artery disease Father's Brother 1 Jermain Tass et Pancreatic cancer Father's Brother 1 Jermain Tasset Thyroid cancer Father's Brother 2 Aditya Tasset Other cancer Father's Brother 3 Karthik Tasset Brain tu mor Coronary artery disease Father's Brother 4 Jermain Tass et Pancreatic cancer Father's Brother 4 Jermain Tasset Thyroid cancer Father's Brother 5 Aditya Tasset Other cancer Father's Brother 6 Santa Teresa Tasset Brain tu mor Ovarian cancer Father's Sister 1 Albertine Tasset Ovarian cancer Father's Sister 2 Albertine Tasset Breast cancer Maternal Grandmother 1 Grandmother Tasse t Seizures Maternal Grandmother 1 Grandmother Tasset Breast cancer Maternal Grandmother 2 Grandmother Tasse t Seizures Maternal Grandmother 2 Grandmother Tasset Arthritis Mother 1 Delphine tasset Hypertension Mother 1 Delphine tasset Arthritis Mother 2 Delphine tasset Hypertension Mother 2 Delphine tasset Parkinson disease Mother's Brother 1 Real Genet Parkinsonism Mother's Brother 2 Real Parkinson disease Mother's Sister 1 Sharon Blanchett e Parkinson disease Mother's Sister 2 Sharon Blanchett e Parkinsonism Mother's Sister 2 Sharon Genet Coronary artery disease Paternal Grandfather 1 Aditya Tasset Coronary artery disease Paternal Grandfather 2 Aditya Tasset Relation Name Status Comments Brother James Tasset Father 1 Surendra Tasset Father 2 Surendra Tasset Alive Father's Brother 1 Jermain Tasset Father's Brother 2 Aditya Tasset Father's Brother 3 [place] Tasset Father's Brother 4 Jermain Tasset Alive Father's Brother 5 Aditya Tasset Alive Father's Brother 6 [place] Tasset Alive Father's Sister 1 Albertine Tasset Father's Sister 2 Albertine Tasset Alive Maternal Grandmother 1 Grandmother Tasset Maternal Grandmother 2 Grandmother Tasset Alive Mother 1 Delphine tasset Mother 2 Delphine tasset Alive Mother's Brother 1 Real Genet Mother's Brother 2 Real Alive Mother's Sister 1 Sharon Genet Mother's Sister 2 Sharon Genet Alive Paternal Grandfather 1 Aditya Tasset Paternal Grandfather 2 Aditya Tasset Alive Social History Tobacco Use Types Packs/Day Years Used Date Smoking Tobacco: Never Smokeless Tobacco: Never Tobacco Cessation:Counseling Given: Not Answered Alcohol Use Standard Drinks/Week Comments Yes 1 (1 standard drink = 0.6 oz pur e alcohol) [facility] Utilities Answer Date Recorded In the past 12 months has th e [employer], gas, oil, or water company threatened to [...] money to buy more. Never true 10/02/19 24 Within the past 12 months, t he [...] your living situation today? 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 Gender Identity Female 11/28/2017 2:01 PM CDT Sexual Orientation Straight 10/02/2023 1: 27 PM CDT Last Filed Vital Signs Vital Sign Reading Time Taken Comments Blood Pressure 134/80 06/27/2024 2:55 PM CDT Pulse 80 06/27/2024 2:55 PM CDT Temperature 36.7 C (98.1 F) 06/27/2024 2:55 PM CDT Respiratory Rate 20 12/08/2023 9:58 AM CDT Oxygen Saturation 98% 06/27/2024 2:55 PM CDT Inhaled Oxygen Concentration - - Weight 56.2 kg (123 lb 14.4 oz) 06/27/2024 2:55 PM CDT Height 159 cm (5' 2.6) 06/27/2024 2:55 PM CDT Body Mass Index 22.23 06/27/2024 2:55 PM CDT Plan of Treatment Upcoming Encounters Date Type Department Care Team (Latest Contact Info) Description 10/08/2024 2:20 PM CDT Comprehensive Visit Department of Family Medicine, [facility], [address] [phone] Linn Robbins M.D. [address] [place] [phone] Discharge Disposition: Home or Self Care 10/08/2024 2:45 PM CDT Office Visit Department of Family Medicine, [facility], [address] [phone] Linn Robbins M.D. [address] [place] [phone] Discharge Disposition: Home or Self Care Health Maintenance Due Date Last Done Comments IPV Vaccines (2 of 3 - Adult catch-up series) 03/04/1974 02/04/1974 COVID-19 Vaccine ( season) 2024 12/16/2023, 08/29/2023, 01/14/2023, Additional history exists Visit: Medicare Annual Wellness 10/07/2024 , 10/07/2023 Visit: Annual, age 65+ (or Medicare and <65) 05/29/2025 05/29/2024 DTaP,Tdap,and Td Vaccines (3 - Td or Tdap) 06/21/2032 06/21/2022, 10/14/2011, 04/14/2004, Additional history exists Hepatitis A Vaccines Completed 04/07/2004, 07/05/18 96 Pneumococcal vaccine (50+ years) Completed 06/03/2014, 01/01/2010, 04/08/2004 Zoster Vaccines Completed 10/10/2019, 04/08, 06/10/2006 RSV vaccine - (32-3 6 weeks) or 60+ years Completed 01/19/2023 Influenza Vaccine Completed 12/20/2023, , 01/17/2022, Additional history exists Depression Screening (Annual PHQ-2) Completed 05/29/2024 Fall Risk Screen (Annual) Completed 05/29/2024 Medical Devices Implanted Type Area Oxygen System Tester Device Identifier Shelf Expiration Date Model / Serial / Lot Conversions - Default Historical Implant Device Implanted:2013 (Quantity not on file) Ocular Lens Description:Device Status Te xt - OculrLens. Procedures Procedure Name Priority Date/Time Associated Diagnosis Comments BASIC METABOLIC PANEL, S/P Routine 06/27/2024 4:04 PM CDT Preoperative Exam CBC WITH DIFFERENTIAL, B Routine 06/27/2024 4:04 PM CDT Preoperative Exam DX LUMBAR SPINE 2-3 VIEWS RAD - Routine (most inpatients and all outpatients) 05/29/2024 10:49 AM CDT Pain Low Back Unspecified Pain Sacroiliac DX HIPS AND PELVIS BILATERAL MINIMUM 5 VIEWS RAD - Routine (most inpatients and all outpatients) 05/29/2024 10:48 AM CDT Primary Osteoarthritis Hip Left Pain Sacroiliac DX KNEE LEFT 3 VIEWS RAD - Routine (most inpatients and all outpatients) 05/29/2024 10:47 AM CDT Pain Knee Left from Last 3 Months Results * CBC with Differential, Blood (06/27/2024 4:04 PM CDT) [facility] Signature Hemoglobin 13.1 11.6 - 15.0 g/dL 06/27/2024 [...] M.D. LAB BLOOD ADD-ON Final Resu lt [facility] [address] [place] [id number], [facility] [place] [address] * (ABNORMAL) Basic Metabolic Panel (06/27/2024 4:04 [...] M.D. LAB BLOOD ADD-ON Final Resu lt [facility] [address] [place] [address], [facility] in [address] [address] * DX Lumbar Spine 2-3 Views (05/29/2024 [...] SPINE 2-3 VIEWS us Linn Robbins M.D. IMG DIAGNOSTIC IMAGING PRO CEDURES Final Result * DX Hips and Pelvis Bilateral 5+ Views (05/29/2024 10:48 AM CDT) Anatomical Region Laterality Modality Lower Extremity, Pelvis, Hip , Musculoskeletal RST LOS, Musculoskeletal ARZ LOS, Muskuloskeletal FLA LOS Bilateral Digit al Radiography Impressions 05/29/2024 11:04 AM CDT There [...] SPINE 2-3 VIEWS us Linn Robbins M.D. [facility] DIAGNOSTIC IMAGING PRO CEDURES Final Result * [...] in the lateralcompartment. us Linn Robbins M.D. [facility] DIAGNOSTIC IMAGING PRO CEDURES Final Result from Last 3 Months Insurance [facility] Advance Directives For more information, please contact: [phone] Documents on File Type Date Recorded Patient Ultrasound Manager Expl anation Advance Directives 10/07/2023 12:34 PM Tito EspanaGeradha Espana HCPOA/ADVOCATE/AGENT/R EPRESENTATIVE/SURROGAT E Advance Directives 12/07/2022 2:05 PM BODY /ORGAN DONATION * Full Code (Latest Code Status on File) Date Activated Date Inactivated Comments 12/08/2023 6:39 AM 12/08/2023 12:59 PM Question Answer Comments Full Code: Discussed Healthcare Agents on File Name Relationship Healthcare Agent Relationship Communication Tito Espana Spouse Health Care Agent [email or web address] Jeny Espana Daughter First Alternate Health Care Agent [email or web address] Roni Espana Son Second Alternate Health Care Agent Care Teams Signal Tester Relationship Specialty Start Date End Date Linn Robbins M.D. [id number] [place] [phone] PCP - General Family Medicine 09/12/23
--- OUTSIDE RECORDS SUMMARY | 2024-07-02 19:57 | XMS_ITS | Encounter Summary ---
Author Organization [facility] Address [address] [place] [address] Care Team Providers Care Technical Publications Writer Name Role Phone Linn Robbins M.D. Primary Care Provider +1- [phone] Reason for Referral * Outpatient (Routine) - Closed Specialty Diagnoses / Procedures Referred By Contac t Referred To Contact Diagnoses Pain Knee Left Procedures DX Knee Left 3 Views Linn Robbins M.D. [address] [place] [phone] Phone: tel: fax: [facility] Region Referral ID Status Reason Start Date Expiration Date Visits Re quested Visits Authorized [id number] Closed 05/29/2024 08/29/2025 1 1 Reason for Visit * Outpatient (Routine) - Closed Specialty Diagnoses / Procedures Referred By Contac t Referred To Contact Diagnoses Pain Knee Left Procedures DX Knee Left 3 Views Linn Robbins M.D. [address] [place] [phone] Phone: tel: fax: [facility] Region Referral ID Status Reason Start Date Expiration Date Visits Re quested Visits Authorized [id number] Closed 05/29/2024 08/29/2025 1 1 Encounter Details Date Type Department Care Team (Latest Contact Info) Description 05/29/2024 10:31 AM CDT - 05/29/2024 11:59 PM CDT Hospital Encounter Department of Radiology in [address] [phone] Linn Robbins M.D. [address] [place] [phone] Pain Knee Left Discharge Disposition: Home or Self Care Social History Tobacco Use Types Packs/Day Years Used Date Smoking Tobacco: Never Smokeless Tobacco: Never Alcohol Use Standard Drinks/Week Comments Yes 1 (1 standard drink = 0.6 oz pur e alcohol) [facility] Utilities Answer Date Recorded In the past 12 months has e electric, gas, oil, or water company threatened to [...] your living situation today? 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, [address] [phone] Linn Robbins M.D. [address] [place] [phone] Discharge Disposition: Home or Self Care 10/08/2024 2:45 PM CDT Office Visit Department of Family Medicine, [facility], [address] [phone] Linn Robbins M.D. [address] [place] [phone] Discharge Disposition: Home or Self Care documented as of this encounter Procedures Procedure Name Priority Date/Time Associated Diagnosis Comments DX KNEE LEFT 3 VIEWS RAD - Routine (most inpatients and all outpatients) 05/29/2024 10:47 AM CDT Pain Knee Left documented in this encounter Results * DX Knee Left 3 Views (05/29/2024 [...] Moderate tricompartmental osteoarthritis greatest in the lateralcompartment. Linn Robbins M.D. IMG DIAGNOSTIC IMAGING PRO CEDURES Final Result documented in this encounter Visit Diagnoses Diagnosis Pain Knee Left documented in this encounter Care Teams Technical Publications Writer Relationship Specialty Start Date End Date Linn Robbins M.D. [address] [place] [phone] PCP - General Family Medicine 09/12/23 documented as of this encounter
--- OUTSIDE RECORDS SUMMARY | 2024-07-02 19:57 | XMS_ITS | Encounter Summary ---
Author Organization [facility] Address [address] [place] [address] Care Team Providers Care Explosive Technician Name Role Phone Linn Robbins M.D. Primary Care Provider +1- [phone] Encounter Details Date Type Department Care Team (Latest Contact Info) Description 06/27/2024 3:50 PM CDT - 06/27/2024 11:59 PM CDT Hospital Encounter Department of Laboratory Medicine in [address] [phone] Ashleigh Bell M.D. [address] [place] [phone] Preoperative Exam Discharge Disposition: Home or Self Care Social History Tobacco Use Types Packs/Day Years Used Date Smoking Tobacco: Never Smokeless Tobacco: Never Alcohol Use Standard Drinks/Week Comments Yes 1 (1 standard drink = 0.6 oz pur e alcohol) [facility] Utilities Answer Date Recorded In the past 12 months has th e electric, gas, oil, or water [employer] threatened to shut off services in your [...] your living situation today? 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 Bifidobacterium infantis (Align) 4 mg capsule Take 4 mg by mouth daily. CALCIUM-MAGNESIUM -ZINC ORAL Take 2 tablets by mouth daily. calcium 500 mg, Magnesium 50 mg, Zinc 10 mg, Copper 1 mg, Mangense 1 mg, and Borom 1 mg. 06/03/2014 cholecalciferol (Vitamin D3) 50 mcg (2,000 Unit) capsule Take 50 mcg by mouth daily. 05/28/2022 docosahexaenoic acid/epa (FISH OIL ORAL) Take 1,400 mg by mouth daily. doxycycline monohydrate (Monodox) 100 mg capsule TAKE 1 CAPSULE BY MOUTH TWICE A DAY X 2 WEEKS, THEN ONCE A DAY X 2 WEEKS, THEN DIRECTED* 06/21/2024 erythromycin (Romycin) 5 mg/gram (0.5 %) ophthalmic ointment Apply sparingly to lash line of both eyes nightly x 2 weeks, then as needed for flare ups* 06/21/2024 krill oil 500 mg capsule Take 500 [...] CDT Comprehensive Visit Department of Family Medicine, [facility], in [address] [phone] Linn Robbins M.D. [address] [place] [phone] Discharge Disposition: Home or Self Care 10/08/2024 2:45 PM CDT Office Visit Department of Family Medicine, [facility], in [place], [place] [phone] [place] [address], [place] [phone] Linn Robbins M.D. [address] [phone] Discharge Disposition: Home or Self Care documented as of this encounter Procedures Procedure Name Priority Date/Time Associated Diagnosis Comments CBC WITH DIFFERENTIAL, B Routine 06/27/2024 4:04 PM CDT Preoperative Exam BASIC METABOLIC PANEL, S/P Routine 06/27/2024 4:04 PM CDT Preoperative Exam documented in this encounter Results * (ABNORMAL) Basic Metabolic [...] M.D. LAB BLOOD ADD-ON Final Resu lt [facility] [address] [place] [address], [facility] CNFL [facility] [place] [address] * CBC with Differential, Blood (06/27/2024 4:04 [...] M.D. LAB BLOOD ADD-ON Final Resu lt [facility] [address] [place] [address], [facility] in [address] [address] documented in this encounter Visit Diagnoses Diagnosis Preoperative Exam documented in this encounter Care Teams Explosive Technician Relationship Specialty Start Date End Date Linn Robbins M.D. [address] [place] [phone] PCP - General Family Medicine 09/12/23 documented as of this encounter
--- OUTSIDE RECORDS SUMMARY | 2024-07-02 19:57 | XMS_ITS | Encounter Summary ---
Author Organization [facility] Address [address] [place] [address] Care Team Providers Care Apartment Maintenance Worker Name Role Phone Linn Robbins M.D. Primary Care Provider +1- [phone] Reason for Visit * Outpatient (Routine) - Closed Specialty Diagnoses / Procedures Referred By Contac t Referred To Contact Diagnoses Primary Osteoarthritis Hip Left Pain Sacroiliac Procedures DX Hips and Pelvis Bilateral 5+ Views DX Hips and Pelvis Bilateral 3-4 Views Linn Robbins M.D. [address] [place] [phone] Phone: tel: fax: [facility] Region Referral ID Status Reason Start Date Expiration Date Visits Re quested Visits Authorized [id number] Closed 05/29/2024 08/29/2025 1 1 Encounter Details Date Type Department Care Team (Latest Contact Info) Description 05/29/2024 10:31 AM CDT - 05/29/2024 11:59 PM CDT Hospital Encounter Department of Radiology in [place] [phone] Linn Robbins M.D. [address] [place] [phone] Primary Osteoarthritis Hip Left; Pain Sacroiliac Discharge Disposition: Home or Self Care Social History Tobacco Use Types Packs/Day Years Used Date Smoking Tobacco: Never Smokeless Tobacco: Never Alcohol Use Standard Drinks/Week Comments Yes 1 (1 standard drink = 0.6 oz pur e alcohol) [facility] Utilities Answer Date Recorded In the past [...] your living situation today? 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 [address] [place] [phone] Discharge Disposition: Home or Self Care 10/08/2024 2:45 PM CDT Office Visit Department of Family [facility], in [address] [phone] Linn Robbins M.D. [address] [place] [phone] Discharge Disposition: Home or Self Care documented as of this encounter Procedures Procedure Name Priority Date/Time Associated Diagnosis Comments DX HIPS AND PELVIS BILATERAL MINIMUM 5 VIEWS RAD - Routine (most inpatients and all outpatients) 05/29/2024 10:48 AM CDT Primary Osteoarthritis Hip Left Pain Sacroiliac documented in this encounter Results * DX Hips and Pelvis Bilateral 5+ [...] 5+ VIEWS, DX LUMBAR SPINE 2-3 VIEWS Linn Robbins M.D. IMG DIAGNOSTIC IMAGING PRO CEDURES Final Result documented in this encounter Visit Diagnoses Diagnosis Primary Osteoarthritis Hip Left Pain Sacroiliac documented in this encounter Care Teams Apartment Maintenance Worker Relationship Specialty Start Date End Date Linn Robbins M.D. [phone] [phone] PCP - General Family Medicine 09/12/23 documented as of this encounter
--- OUTSIDE RECORDS SUMMARY | 2024-07-02 19:57 | XMS_ITS | Encounter Summary ---
Author Organization [facility] Address [address] [place] [address] Care Team Providers Care Aircraft Instrument Repairer Name Role Phone Linn Robbins M.D. Primary Care Provider +1- [phone] Encounter Details Date Type Department Care Team (Late st Contact Info) Description 02/10/2012 Historical Ophthalmology RST OPH Philip Starr O.D., Ph.D. 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 - 02/10/2012 1:50 PM CST Eye General CHIEF COMPLAINT Yearly recheck ocular hypertension. HISTORY OF PRESENT ILLNESS Blurred near vision; notices when she compares vision for right eye to left eye; on and off. IMPRESSION / REPORT / PLAN #1 Cataract, visually significant Pt content to monitor #2 Meibomian gland dysfunction both eyes. Plan: use artificial tears prn, gave patient eyelid hygiene instructions. #3 Ocular hypertension Plan: Continue Travatan 1 drop each eye bedtime. Optic discs normal #4 Refractive error (myopic astigmatism, presbyopia). Plan: Minimal change in spectacle prescription, spectacle prescription (Refraction 1) given. 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 CDM Reports - [email or web address] Id: [id number] Status: Fnl documented in this encounter Plan of Treatment Upcoming Encounters Date Type Department Care Team (Latest Contact Info) Description 10/08/2024 2:20 PM CDT Comprehensive Visit Department of Family Medicine, [facility], [address] [phone] Linn Robbins M.D. [address] [place] [phone] Discharge Disposition: Home or Self Care 10/08/2024 2:45 PM CDT Office Visit Department of Family Medicine, [facility], [address] [phone] Linn Robbins M.D. [address] [place] [phone] Discharge Disposition: Home or Self Care documented as of this encounter Visit Diagnoses Not on filedocumented in this encounter Care Teams Aircraft Instrument Repairer Relationship Specialty Start Date End Date Linn Robbins M.D. [address] [place] [phone] PCP - General Family Medicine 09/12/23 documented as of this encounter
[2024-07-02 20:00] VITALS: BP 165/89; PULSE 81; RESP 18; TEMP 36.8; O2SAT 99; BMI 21.4
[2024-07-02 20:05] VITALS: RESP 18; O2SAT 99
--- NOTE | 2024-07-02 20:20 | ED.GENADULT ---
HPI - General Adult General Time Seen by Provider: 20:20 Date Seen: 07/02/24 Chief complaint: Unspecified Complaint, Adult Stated complaint: possible Hemorrhoid Time Seen by Provider: 07/02/24 20:04 Source: patient and RN notes reviewed Mode of arrival: ambulatory Limitations: no limitations History of Present Illness HPI narrative: This 83yo female presents to the ED accompanied by her with complaint of rectal pain. She states that she was constipated today and thinks she pushed too hard. She was straining this morning. She wonders if this could be a recurrent hemorrhoid. She had hemorrhoid surgery back in 1984, has not had problems since then. She has noted no blood in the stool. She states she had an emesis EN route due to the pain. No fevers or chills. She feels better if she standing, feels more pain if she sits. She does note there is a little fecal leakage. Past medical history and medications reviewed. Related Data Home Medications ?Medication ?Instructions ?Recorded ?Confirmed Bifidobacterium infantis 10.5 mg 10.5 mg PO DAILY 05/28/22 07/02/24 (10 million cell) chewable tablet (Align (B.infantis)) calcium carbonate (Calcium 500) 500 mg PO QDAY 05/28/22 07/02/24 cholecalciferol (vitamin D3) 10 800 unit PO QDAY 05/28/22 07/02/24 mcg (400 unit) tablet magnesium citrate 85 mg chewable 85 mg PO DAILY 05/28/22 07/02/24 tablet omega-3 fatty acids 1 cap PO DAILY 10/06/22 07/02/24 doxycycline monohydrate 100 mg 100 mg PO BID 06/26/24 07/02/24 capsule erythromycin 5 mg/gram (0.5 %) eye 1 applic ophthalmic (eye) ONCE 06/26/24 07/02/24 ointment Allergies Allergy/AdvReac Type Severity Reaction Status Date / Time No Known Allergies Allergy Unknown Unknown Verified 07/02/24 20:03 Review of Systems Narrative: As per HPI. [facility] Medical History (Updated 07/02/24 @ 21:42 by Bessie Soria MD) Health care directive on file ?Z78.9 - Other specified health status (ICD-10) Vitamin D deficient osteomalacia (1941) ?M83.9 - Adult osteomalacia, unspecified (ICD-10) Varicose veins of both lower extremities with pain ?I83.813 - Varicose veins of bilateral lower extremities with pain (ICD-10) Osteoarthritis ?M19.90 - Unspecified osteoarthritis, unspecified site (ICD-10) Irritable bowel syndrome ?K58.9 - Irritable bowel syndrome without diarrhea (ICD-10) History of migraine ?Z86.69 - Personal history of other diseases of the nervous system and sense organs (ICD-10) History of malignant neoplasm of right breast (1984) ?Z85.3 - Personal history of malignant neoplasm of breast (ICD-10) History of colonic polyps (2000) ?Z86.010 - Personal history of colonic polyps (ICD-10) Encounter for counseling regarding advance directives (06/17/04) ?Z71.89 - Other specified counseling (ICD-10) Dyslipidemia ?E78.5 - Hyperlipidemia, unspecified (ICD-10) Surgical History History of phacoemulsification of cataract of both eyes with intraocular lens implantation (2013) ?Z98.41 - Cataract extraction status, right eye (ICD-10) ?Z98.42 - Cataract extraction status, left eye (ICD-10) ?Z96.1 - Presence of intraocular lens (ICD-10) Status post excisional biopsy (2008) ?Z98.890 - Other specified postprocedural states (ICD-10) History of right mastectomy (1984) ?Z90.11 - Acquired absence of right breast and nipple (ICD-10) History of hemorrhoidectomy (1983) ?Z98.890 - Other specified postprocedural states (ICD-10) History of colonoscopy (2015) ?Z98.890 - Other specified postprocedural states (ICD-10) History of appendectomy (1950) ?Z90.49 - Acquired absence of other specified parts of digestive tract (ICD-10) Family History (Updated 05/28/22 @ 07:00 by Mecca Cunningham MD) Aunt Breast cancer, Onset Age: 65 Paternal Grandmother Breast cancer, Onset Age: 60 Colon cancer Father Brain cancer Myocardial infarction Uncle Throat cancer Other Depression Parkinson disease Social History (Updated 05/28/22 @ 10:48 by Mecca Cunningham MD) Narrative: , 2 adult children, retired teacher, homemaker Non-smoker Social drinker 3-4/month Exercises daily- walks [employer] Directive completed 06/17/04 Smoking Status: Never smoker Second hand tobacco smoke exposure: No How often do you have a drink containing alcohol: never AUDIT-C Alcohol total score: 0 Non-prescribed substance use: denies use Exam Const: Vital Signs, click to edit/add: Vital Signs - 24 hr 07/02/24 20:00 07/02/24 20:05 Temperature 98.2 F Pulse Rate [Right Pulse Oximeter] 81 Respiratory Rate 18 Respiratory Rate [ Rectum] 18 Blood Pressure [Le ft Upper Arm] 165/89 H Pulse Oximetry 99 Oxygen Delivery Me thod Room Air Patient was standing in the room when I came in, appears comfortable. She has conjugate gaze, clear sclera. Symmetrical facial function. She has a little purplish discoloration along the tip of her nose and along center of her cheeks. Abdomen soft, nontender, nondistended. She has some stool smearing, this was cleaned off. Anus appears normal, no hemorrhoids noted, no fissures noted. Digital rectal exam reveals large stool ball just right inside the anus in the rectum, she was quite uncomfortable as soon as I touched the stool ball. Documenting provider has reviewed patient's vital signs: yes Course Course ED Course: Have reviewed with patient that she still has significant stool in the rectal vault, this is what likely is causing her pain, we need to clear out the rectal vault. Will have her try Enemeez. We discussed that there is a little bit of lidocaine in this that can help her relax and diminish the pain. I see no evidence of any hemorrhoids, no active fissures at this time. Reevaluation(s) Time of Reevaluation #1: 21:37 Reevaluation #1: Nursing staff reported that patient stated she had passed a chunk of stool. She was feeling a bit better. When I went back in to check on her, she was lying on her side, was able to lay down. She stated she still had rectal pain but some improved. I did do a digital rectal exam, there is still a large volume of stool in the rectal vault. Did do some manual disimpaction which was moderately uncomfortable for her. There is still a little stool a bit higher. She is going to try to go sit in the bathroom. Upon further discussion, she states she was given an antibiotic from the correctional officer lieutenant for her dry eyes. She was told that she would get diarrhea with it, she states she never gets diarrhea with anything, unfortunately, it is made her constipated. Did offer her some Tylenol but she declined, she states she has this at home. Did review with her that she may have some leftover rectal pain from the constipation. Time of Reevaluation #2: 21:51 Reevaluation #2: Patient just feels there is some leakage happening, nothing is moving down. Nursing staff will try Fleet's enema. Time of Reevaluation #3: 23:05 Reevaluation #3: Did confirm no stool left lower in the rectal vault. Patient really did not retain enema but did have some production after sitting on the commode for a while. She does feel better. Will discharge to home to continue oral medicines that her [id number] for constipation as well as lifestyle modification. No indication for further treatment at this time. Vital Signs Vital signs: Initial Vital Signs Temperature 98.2 F 07/02/24 20:00 Temperature Source Temporal Artery Scan 07/02/24 20:00 Pulse Rate 81 07/02/24 20:00 Respiratory Rate 18 07/02/24 20:00 Blood Pressure 165/89 H 07/02/24 20:00 Blood Pressure Mean 114 H 07/02/24 20:00 Blood Pressure Position Sitting 07/02/24 20:00 Pulse Oximetry 99 07/02/24 20:00 Oxygen Delivery Method Room Air 07/02/24 20:00 Vital Signs Temperature 98.2 F 07/02/24 20:00 Pulse Rate 81 07/02/24 20:00 Respiratory Rate 18 07/02/24 20:00 Blood Pressure 165/89 H 07/02/24 20:00 Pulse Oximetry 99 07/02/24 20:00 Oxygen Delivery Method Room Air 07/02/24 20:00 Temperature 98.2 F 07/02/24 20:00 Pulse Rate 81 07/02/24 20:00 Respiratory Rate 18 07/02/24 20:05 Blood Pressure 165/89 H 07/02/24 20:00 Pulse Oximetry 99 07/02/24 20:00 Oxygen Delivery Method Room Air 07/02/24 20:00 Medications Administered Medications: Discontinued Medications Generic Name Dose Route Start Last Admin Trade Name Priyanka PRN Reason Stop Dose Admin Docusate Sodium/Benzocaine 5 ml 07/02/24 20:27 07/02/24 20:46 Docusate Sodium/Benzocaine 5 Ml Enema AL 07/02/24 20:28 5 ml ONCE ONE Administration Medical Decision Making Imaging Data Abdominal x-ray: Attestation: I have reviewed the pertinent imaging results. My impression: Do see some residual stool but higher than what we are going to be able to reach. Radiologist's impression: Patient: JENNIFER BLUNT Facility:?[facility] Patient ID:?[id number] Site Patient ID:?[id number]. Site :?[id number] Study:?XRay-Abdomen/Pelvis 1V SUPINE-07/02/2024 10:57:40 PM Ordering Physician:?Yang La Final Report: Indication: Constipation. Technique: Abdomen 1 view. Comparison: None. Findings/Impression: Overall moderate colonic stool burden, most prominent within the rectum. No radiographic evidence of obstruction or intraperitoneal free air. Clear lung bases. No acute osseous abnormality. Moderate osteoarthritis of the left hip. Dictated by Marvin Owens MD @ 07/02/2024 11:00:44 PM (Electronic Signature) Discharge Plan Discharge Clinical Impression: Acute constipation Patient Disposition: Home, Self-Care Condition: Stable Instructions: Constipation (ED), High Fiber Diet (ED) Additional Instructions: Recommend trying some MiraLax, 17g daily to help have a formed but soft bowel movement daily. If you start to have 2 soft stools, can back off the dosing of the MiraLax (like going to half capful daily. If the MiraLax is not enough, can add in senna, follow package instructions. Do recommend that you follow-up with your clinic doctor if you have ongoing issues with constipation. It is fine to use Tylenol if you have any residual discomfort, follow bottle directions for dosing. Make sure you are drinking adequate fluids in your diet and try to eat a high-fiber diet as well. Activity Level: Activity as Tolerated Prescriptions: No Action doxycycline monohydrate 100 mg capsule 100 mg PO BID erythromycin 5 mg/gram (0.5 %) ointment 1 applic ophthalmic (eye) ONCE Align (B.infantis) 10.5 mg (10 million cell) tablet,chewable 10.5 mg PO DAILY calcium carbonate [Calcium 500] 500 mg calcium (1,250 mg) tablet,chewable 500 mg PO QDAY magnesium citrate 85 mg tablet,chewable 85 mg PO DAILY cholecalciferol (vitamin D3) 10 mcg (400 unit) tablet 800 unit PO QDAY omega-3 fatty acids [Fish Oil] 1 cap PO DAILY Follow Up/Referrals: Provider,Not a Local [Primary Care Provider] - Stand Alone [facility] Inst[facility]
--- OUTSIDE RECORDS SUMMARY | 2024-07-02 20:42 | XMS_ITS | Encounter Summary ---
Author Organization [facility] Address [address] [place] [address] Care Team Providers Care Medical Orderly Name Role Phone Linn Robbins M.D. Primary Care Provider +1- [phone] Encounter Details Date Type Department Care Team (Late st Contact Info) Description 05/11/2004 Historical Ophthalmology RST OPH Philip Starr O.D., Ph.D. 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 CDM Reports - EYEGEN Id: [id number] Status: Fnl documented in this encounter Plan of Treatment Upcoming Encounters Date Type Department Care Team (Latest Contact Info) Description 10/08/2024 2:20 PM CDT Comprehensive Visit Department of Family Medicine, [facility], in [address] [phone] Linn Robbins M.D. [address] [place] [phone] Discharge Disposition: Home or Self Care 10/08/2024 2:45 PM CDT Office Visit Department of Family Medicine, [facility], in [address] [phone] Linn Robbins M.D. [address] [place] [phone] Discharge Disposition: Home or Self Care documented as of this encounter Visit Diagnoses Not on filedocumented in this encounter Care Teams Medical Orderly Relationship Specialty Start Date End Date Linn Robbins M.D. [address] [place] [phone] PCP - General Family Medicine 09/12/23 documented as of this encounter
--- OUTSIDE RECORDS SUMMARY | 2024-07-02 20:42 | XMS_ITS | Clinical Summary ---
Author Organization [facility] Address [address] [place] [address] Care Team Providers Care Contact Center Professional Name Role Phone Mecca Cunningham MD Primary [...] on file Legal Sex Female 8:14 AM CONVENTION PLANNER Gender Identity Not on file Sexual Orientation [...] Insurance [employer] MED[employer]ARE ADVANTAGE MR Care Teams Contact Center Professional Relationship Specialty Start Date End Date Mecca Cunningham MD [address] [place] [address] PCP - General Family Practice 02/03/21
--- OUTSIDE RECORDS SUMMARY | 2024-07-02 20:43 | XMS_ITS | Encounter Summary ---
Author Organization [facility] Address [address] [place] [address] Care Team Providers Care Director Of Collections And Archives Name Role Phone Linn Robbins M.D. Primary Care Provider +1- [phone] Encounter Details Date Type Department Care Team (Late st Contact Info) Description 11/23/2010 Historical Ophthalmology RST OPH Philip Starr O.D., Ph.D. 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 [address] [place] [phone] Discharge Disposition: Home or Self Care 10/08/2024 2:45 PM CDT Office Visit Department of Family Medicine, [facility], in [address] [phone] Linn Robbins M.D. [address] [place] [phone] Discharge Disposition: Home or Self Care documented as of this encounter Visit Diagnoses Not on filedocumented in this encounter Care Teams Director Of Collections And Archives Relationship Specialty Start Date End Date Linn Robbins M.D. [address] [place] [phone] PCP - General Family Medicine 09/12/23 documented as of this encounter
--- OUTSIDE RECORDS SUMMARY | 2024-07-02 20:43 | XMS_ITS | Clinical Summary ---
Author Organization [facility] Address [address] [place] [address] Care Team Providers Care Furniture Technician Name Role Phone Linn Robbins M.D. Primary Care Provider +1- [phone] Source Comments Patient records contain information from all sites at [facility]. For routine questions regarding patient records, call [phone] during business hours, M-F 8:00 AM - 5:00 PM Central Time. Record requests for emergency care only can be directed to [phone] at any time.[facility] Allergies No known active allergies Medications lanolin/mineral [...] Sensorineural 11/20/2023 Overview (11/20/2023): Mild See scanned [facility] note Polyp Colon Personal History, Unspecified [...] Hospital Encounter Department of Laboratory Medicine in [address] [phone] Ashleigh Bell M.D. Preoperative Exam Discharge Disposition: Home or Self Care 06/27/2024 3:00 PM CDT Office Visit Department of Family Medicine, [facility], in [address] [phone] Ashleigh Bell M.D. Preoperative Exam (Primary Dx); Primary Osteoarthritis Hip Left; Screening Examination Skin Cancer Discharge Disposition: Home or Self Care 06/27/2024 Results Follow-Up Department of Family Medicine, [facility], in [address] [phone] Ashleigh Bell M.D. CBC with Differential, Blood, Basic Metabolic Panel 06/02/2024 Results Follow-Up Department of Family Medicine, [facility], in [address] [phone] Linn Robbins M.D. DX Lumbar Spine 2-3 Views, DX Hips and Pelvis Bilateral 5+ Views 05/29/2024 10:31 AM CDT - 05/29/2024 11:59 PM CDT Hospital Encounter Department of Radiology in [address] [phone] Linn Robbisn M.D. Pain Low Back Unspecified; Pain Sacroiliac Discharge Disposition: Home or Self Care 05/29/2024 10:31 AM CDT - 05/29/2024 11:59 PM CDT Hospital Encounter Department of Radiology in [address] [phone] Linn Robbins M.D. Primary Osteoarthritis Hip Left; Pain Sacroiliac Discharge Disposition: Home or Self Care 05/29/2024 10:31 AM CDT - 05/29/2024 11:59 PM CDT Hospital Encounter Department of Radiology in [address] [phone] Linn Robbins M.D. Pain Knee Left Discharge Disposition: Home or Self Care 05/29/2024 10:00 AM CDT Office Visit Department of Family Medicine, [facility], in [address] [phone] Linn Robbins M.D. Primary Osteoarthritis [...] Aditya Tasset Other cancer Father's Brother 6 Stanton Tasset Brain tu mor Ovarian cancer Father's [...] Brother 2 Aditya Tasset Father's Brother 3 Stanton Tasset Father's Brother 4 Jermain Tasset Alive Father's Brother 5 Aditya Tasset Alive Father's Brother 6 Stanton Tasset Alive Father's Sister 1 Albertine Tasset [...] drink = 0.6 oz pur e alcohol) [facility] Utilities Answer Date Recorded In the past 12 months has th e Yvolver, gas, oil, or water company threatened to [...] your living situation today? 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 [address] [place] [phone] Discharge Disposition: Home or Self Care 10/08/2024 2:45 PM CDT Office Visit Department of Family Medicine, [facility], [address] [phone] Linn Robbins M.D. [address] [place] [phone] Discharge Disposition: Home or Self [...] Completed 05/29/2024 Medical Devices Implanted Type Area Joiner Device Identifier Shelf Expiration Date Model / [...] with Differential, Blood (06/27/2024 4:04 PM CDT) [facility] Signature Hemoglobin 13.1 11.6 - 15.0 [...] M.D. LAB BLOOD ADD-ON Final Resu lt [facility] [address] [place] [address], [facility] [facility] [address] * (ABNORMAL) Basic Metabolic Panel (06/27/2024 4:04 [...] M.D. LAB BLOOD ADD-ON Final Resu lt [facility] [address] [place] [address], [facility] in [address] [address] * DX Lumbar Spine 2-3 Views (05/29/2024 [...] SPINE 2-3 VIEWS us Linn Robbins M.D. [facility] [place] [facility] PRO CEDURES Final Result * [...] in the lateralcompartment. us Linn Robbins M.D. [facility] [place] [facility] PRO CEDURES Final Result from Last 3 Months Insurance [facility] Advance Directives For more information, please contact: [phone] Documents on File Type Date Recorded Patient Operations Developer Expl anation Advance Directives 10/07/2023 12:34 PM Tito EspanaGeradha Espana HCPOA/ADVOCATE/AGENT/R EPRESENTATIVE/SURROGAT E Advance Directives 12/07/2022 2:05 PM BODY /ORGAN DONATION * Full Code (Latest Code Status on File) Date Activated Date Inactivated Comments 12/08/2023 6:39 AM 12/08/2023 12:59 PM Question Answer Comments Full Code: Discussed Healthcare Agents on File Name Relationship Healthcare Agent Relationship Communication Tito Espana Spouse Health Care Agent [email or web address] Jeny Espana Daughter First Alternate Health Care Agent [email or web address] Roni Espana Son Second Alternate Health Care Agent Care Teams Furniture Technician Relationship Specialty Start Date End Date Linn Robbins M.D. [id number] [place] [phone] PCP - General Family Medicine 09/12/23
--- OUTSIDE RECORDS SUMMARY | 2024-07-02 20:43 | XMS_ITS | Encounter Summary ---
Author Organization [facility] Address [address] [place] [address] Care Team Providers Care Associate Professor Of Physics Name Role Phone Linn Robbins M.D. Primary Care Provider +1- [phone] Reason for Referral * Outpatient (Routine) - Closed Specialty Diagnoses / Procedures Referred By Contac t Referred To Contact Diagnoses Pain Knee Left Procedures DX Knee Left 3 Views Linn Robbins M.D. [address] [place] [phone] Phone: tel: fax: [facility] Region Referral ID Status Reason Start Date Expiration Date Visits Re quested Visits Authorized [id number] Closed 05/29/2024 08/29/2025 1 1 * Outpatient (Routine) - Closed Specialty Diagnoses / Procedures Referred By Contac t Referred To Contact Diagnoses Pain Low Back Unspecified Pain Sacroiliac Procedures DX Lumbar Spine 2-3 Views Linn Robbins M.D. [address] [place] [phone] Phone: tel: fax: [facility] Referral ID Status Reason Start Date Expiration Date Visits Re quested Visits Authorized [id number] Closed 05/29/2024 08/29/2025 1 1 Reason for [...] Expiration Date Visits Re quested Visits Authorized [id number] Closed 05/18/2024 08/18/2025 1 1 Encounter Details Date Type Department Care Team (Latest Contact Info) Description 05/29/2024 10:00 AM CDT Office Visit Department of Family Medicine, [facility], in [address] [phone] Linn Robbins M.D. 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 Rahman in [place], which is closer to her home. She declines need for physical therapy referral today. documented in this encounter Plan of Treatment Upcoming Encounters Date Type Department Care Team (Latest Contact Info) Description 10/08/2024 2:20 PM CDT Comprehensive Visit Department of Family Medicine, [facility], [address] [phone] Linn Robbins M.D. [address] [place] [phone] Discharge Disposition: Home or Self Care 10/08/2024 2:45 PM CDT Office Visit Department of Family [facility], [facility], in [address] [phone] Linn Robbins M.D. [address] [place] [phone] Discharge Disposition: Home or Self Care documented [...] SPINE 2-3 VIEWS us Linn Robbins M.D. [facility] PRO CEDURES Final Result * [...] Sacroiliac documented in this encounter Care Teams Associate Professor Of Physics Relationship Specialty Start Date End Date Linn Robbins M.D. [address] [place] [phone] PCP - General Family Medicine 09/12/23 documented as of this encounter
--- OUTSIDE RECORDS SUMMARY | 2024-07-02 20:43 | XMS_ITS | Encounter Summary ---
Author Organization [facility] Address [address] [place] [address] Care Team Providers Care Traffic Director Name Role Phone Linn Robbins M.D. Primary Care Provider +1- [phone] Encounter Details Date Type Department Care Team (Late st Contact Info) Description 02/10/2012 Historical Ophthalmology RST OPH Philip Starr O.D., Ph.D. 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 CDM Reports - EYEAct-On Software Id: [id number] Status: Fnl documented in this encounter Plan of Treatment Upcoming Encounters Date Type Department Care Team (Latest Contact Info) Description 10/08/2024 2:20 PM CDT Comprehensive Visit Department of Family Medicine, [facility], [address] [phone] Linn Robbins M.D. [address] [place] [phone] Discharge Disposition: Home or Self Care 10/08/2024 2:45 PM CDT Office Visit Department of Family Medicine, [facility], [address] [phone] Linn Robbins M.D. [address] [place] [phone] Discharge Disposition: Home or Self Care documented as of this encounter Visit Diagnoses Not on filedocumented in this encounter Care Teams Traffic Director Relationship Specialty Start Date End Date Linn Robbins M.D. [address] [place] [phone] PCP - General Family Medicine 09/12/23 documented as of this encounter
--- OUTSIDE RECORDS SUMMARY | 2024-07-02 20:43 | XMS_ITS | Encounter Summary ---
Author Organization [facility] Address [address] [place] [address] Care Team Providers Care Copyist Name Role Phone Linn Robbins M.D. Primary Care Provider +1- [phone] Encounter Details Date Type Department Care Team (Late st Contact Info) Description 04/02/2005 Historical Ophthalmology RST OPH Philip Starr O.D., Ph.D. 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 [address] [place] [phone] Discharge Disposition: Home or Self Care 10/08/2024 2:45 PM CDT Office Visit Department of Family Medicine, [facility], in [address] [phone] Linn Robbins M.D. [address] [place] [phone] Discharge Disposition: Home or Self Care documented as of this encounter Visit Diagnoses Not on filedocumented in this encounter Care Teams Copyist Relationship Specialty Start Date End Date Linn Robbins M.D. [address] [place] [phone] PCP - General Family Medicine 09/12/23 documented as of this encounter
--- OUTSIDE RECORDS SUMMARY | 2024-07-02 20:43 | XMS_ITS | Encounter Summary ---
Author Organization [facility] Address [address] [place] [address] Care Team Providers Care Service Manager Name Role Phone Linn Robbins M.D. Primary Care Provider +1- [phone] Encounter Details Date Type Department Care Team (Late st Contact Info) Description 03/17/2006 Historical Ophthalmology RST OPH Philip Starr O.D., Ph.D. 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 [address] [place] [phone] Discharge Disposition: Home or Self Care 10/08/2024 2:45 PM CDT Office Visit Department of Family Medicine, [facility], in [address] [phone] Linn Robbins M.D. [address] [place] [phone] Discharge Disposition: Home or Self Care documented as of this encounter Visit Diagnoses Not on filedocumented in this encounter Care Teams Service Manager Relationship Specialty Start Date End Date Linn Robbins M.D. [address] [phone] PCP - General Family Medicine 09/12/23 documented as of this encounter
--- OUTSIDE RECORDS SUMMARY | 2024-07-02 20:43 | XMS_ITS | Encounter Summary ---
Author Organization [facility] Address [address] [place] [address] Care Team Providers Care Health Care Marketing Specialist Name Role Phone Linn Robbins M.D. Primary Care Provider +1- [phone] Encounter Details Date Type Department Care Team (Late st Contact Info) Description 11/21/2009 Historical Ophthalmology RST OPH Philip Starr O.D., Ph.D. 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 [address] [place] [phone] Discharge Disposition: Home or Self Care 10/08/2024 2:45 PM CDT Office Visit Department of Family Medicine, [facility], in [address] [phone] Linn Robbins M.D. [address] [place] [phone] Discharge Disposition: Home or Self Care documented as of this encounter Visit Diagnoses Not on filedocumented in this encounter Care Teams Health Care Marketing Specialist Relationship Specialty Start Date End Date Linn Robbins M.D. [address] [place] [phone] PCP - General Family Medicine 09/12/23 documented as of this encounter
--- OUTSIDE RECORDS SUMMARY | 2024-07-02 20:43 | XMS_ITS | Encounter Summary ---
Author Organization [facility] Address [address] [place] [address] Care Team Providers Care Gis Technician Name Role Phone Linn Robbins M.D. Primary Care Provider +1- [phone] Encounter Details Date Type Department Care Team (Late st Contact Info) Description 09/03/2004 Historical Ophthalmology RST OPH Philip Starr O.D., Ph.D. 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 [address] [place] [phone] Discharge Disposition: Home or Self Care 10/08/2024 2:45 PM CDT Office Visit Department of Family Medicine, [facility], in [address] [phone] Linn Robbins M.D. [address] [place] [phone] Discharge Disposition: Home or Self Care documented as of this encounter Visit Diagnoses Not on filedocumented in this encounter Care Teams Gis Technician Relationship Specialty Start Date End Date Linn Robbins M.D. [address] [place] [phone] PCP - General Family Medicine 09/12/23 documented as of this encounter
--- OUTSIDE RECORDS SUMMARY | 2024-07-02 20:43 | XMS_ITS | Encounter Summary ---
Author Organization [facility] Address [address] [place] [address] Care Team Providers Care Privacy Attorney Name Role Phone Linn Robbins M.D. Primary Care Provider +1- [phone] Encounter Details Date Type Department Care Team (Late st Contact Info) Description 04/30/2005 Historical Ophthalmology RST OPH Philip Starr O.D., Ph.D. 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 CDM Reports - EYESV Id: [id number] Status: Fnl documented in this encounter Plan of Treatment Upcoming Encounters Date Type Department Care Team (Latest Contact Info) Description 10/08/2024 2:20 PM CDT Comprehensive Visit Department of Family Medicine, [facility], [address] [phone] Linn Robbins M.D. [address] [place] [phone] Discharge Disposition: Home or Self Care 10/08/2024 2:45 PM CDT Office Visit Department of Family Medicine, [facility], [address] [phone] Linn Robbins M.D. [address] [place] [phone] Discharge Disposition: Home or Self Care documented as of this encounter Visit Diagnoses Not on filedocumented in this encounter Care Teams Privacy Attorney Relationship Specialty Start Date End Date Linn Robbins M.D. [address] [place] [phone] PCP - General Family Medicine 09/12/23 documented as of this encounter
--- OUTSIDE RECORDS SUMMARY | 2024-07-02 20:43 | XMS_ITS | Encounter Summary ---
Author Organization [facility] Address [address] [place] [address] Care Team Providers Care Model And Dye Person Name Role Phone Linn Robbins M.D. Primary Care Provider +1- [phone] Reason for Referral * Outpatient (Routine) - Closed Specialty Diagnoses / Procedures Referred By Contac t Referred To Contact Diagnoses Pain Knee Left Procedures DX Knee Left 3 Views Linn Robbins M.D. [address] [place] [phone] Phone: tel: fax: [facility] Region Referral ID Status Reason Start Date Expiration Date Visits Re quested Visits Authorized [id number] Closed 05/29/2024 08/29/2025 1 1 Reason for Visit * Outpatient (Routine) - Closed Specialty Diagnoses / Procedures Referred By Contac t Referred To Contact Diagnoses Pain Knee Left Procedures DX Knee Left 3 Views Linn Robbins M.D. [address] [place] [phone] Phone: tel: fax: [facility] Region Referral ID Status Reason Start Date Expiration Date Visits Re quested Visits Authorized [id number] Closed 05/29/2024 08/29/2025 1 1 Encounter Details Date Type Department Care Team (Latest Contact Info) Description 05/29/2024 10:31 AM CDT - 05/29/2024 11:59 PM CDT Hospital Encounter Department of Radiology in [address] [phone] Linn Robbins M.D. [address] [place] [phone] Pain Knee Left Discharge Disposition: Home or Self Care Social History Tobacco Use Types Packs/Day Years Used Date Smoking Tobacco: Never Smokeless Tobacco: Never Alcohol Use Standard Drinks/Week Comments Yes 1 (1 standard drink = 0.6 oz pur e alcohol) [facility] Utilities Answer Date Recorded In the [...] your living situation today? 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 [address] [place] [phone] Discharge Disposition: Home or Self Care 10/08/2024 2:45 PM CDT Office Visit Department of Family Medicine, [facility], [address] [phone] Linn Robbins M.D. [address] [place] [phone] Discharge Disposition: Home or Self Care documented [...] Left documented in this encounter Care Teams Model And Dye Person Relationship Specialty Start Date End Date Linn Robbins M.D. [address] [place] [phone] PCP - General Family Medicine 09/12/23 documented as of this encounter
--- OUTSIDE RECORDS SUMMARY | 2024-07-02 20:43 | XMS_ITS | Encounter Summary ---
Author Organization [facility] Address [address] [place] [address] Care Team Providers Care Mine Safety Manager Name Role Phone Linn Robbins M.D. Primary Care Provider +1- [phone] Reason for Referral * Outpatient (Routine) - Closed Specialty Diagnoses / Procedures Referred By Contac t Referred To Contact Diagnoses Pain Low Back Unspecified Pain Sacroiliac Procedures DX Lumbar Spine 2-3 Views Linn Robbins M.D. [address] [place] [phone] Phone: tel: fax: [facility] Region Referral ID Status Reason Start Date Expiration Date Visits Re quested Visits Authorized [id number] Closed 05/29/2024 08/29/2025 1 1 Reason for Visit * Outpatient (Routine) - Closed Specialty Diagnoses / Procedures Referred By Contac t Referred To Contact Diagnoses Pain Low Back Unspecified Pain Sacroiliac Procedures DX Lumbar Spine 2-3 Views Linn Robbins M.D. [address] [place] [phone] Phone: tel: fax: [facility] Region Referral ID Status Reason Start Date Expiration Date Visits Re quested Visits Authorized [id number] Closed 05/29/2024 08/29/2025 1 1 Encounter Details Date Type Department Care Team (Latest Contact Info) Description 05/29/2024 10:31 AM CDT - 05/29/2024 11:59 PM CDT Hospital Encounter Department of Radiology in [address] [phone] Linn Robbins M.D. [address] [place] [phone] Pain Low Back Unspecified; Pain Sacroiliac Discharge Disposition: Home or Self Care Social History Tobacco Use Types Packs/Day Years Used Date Smoking Tobacco: Never Smokeless Tobacco: Never Alcohol Use Standard Drinks/Week Comments Yes 1 (1 standard drink = 0.6 oz pur e alcohol) [facility] Utilities Answer Date Recorded In the past 12 months has e [employer], gas, oil, or water [employer] threatened to shut off services in your [...] your living situation today? 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 [address] [place] [phone] Discharge Disposition: Home or Self Care 10/08/2024 2:45 PM CDT Office Visit Department of Family Medicine, [facility], [address] [phone] Linn Robbins M.D. [address] [place] [phone] Discharge Disposition: Home or Self Care documented [...] Sacroiliac documented in this encounter Care Teams Mine Safety Manager Relationship Specialty Start Date End Date Linn Robbins M.D. [address] [place] [phone] PCP - General Family Medicine 09/12/23 documented as of this encounter
--- OUTSIDE RECORDS SUMMARY | 2024-07-02 20:43 | XMS_ITS | Encounter Summary ---
Author Organization [facility] Address [address] [place] [address] Care Team Providers Care Utility Tractor Operator Name Role Phone Linn Robbins M.D. Primary Care Provider +1- [phone] Encounter Details Date Type Department Care Team (Late st Contact Info) Description 06/27/2024 Results Follow-Up Department of Family Medicine, [facility], in [address] [phone] Ashleigh Bell M.D. [address] [place] [phone] CBC with Differential, Blood, Basic Metabolic Panel Social History Tobacco Use Types Packs/Day Years Used Date Smoking Tobacco: Never Smokeless Tobacco: Never Alcohol Use Standard Drinks/Week Comments Yes 1 (1 standard drink = 0.6 oz pur e alcohol) [facility] Utilities Answer Date Recorded In the past 12 months has [employer], gas, oil, or water company threatened to [...] your living situation today? 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 [address] [place] [phone] Discharge Disposition: Home or Self Care 10/08/2024 2:45 PM CDT Office Visit Department of Family Medicine, [facility], [address] [phone] Linn Robbins M.D. [address] [place] [phone] Discharge Disposition: Home or Self Care documented as of this encounter Visit Diagnoses Not on filedocumented in this encounter Care Teams Utility Tractor Operator Relationship Specialty Start Date End Date Linn Robbins M.D. [address] [place] [phone] PCP - General Family Medicine 09/12/23 documented as of this encounter
--- OUTSIDE RECORDS SUMMARY | 2024-07-02 20:43 | XMS_ITS | Encounter Summary ---
Author Organization [facility] Address [address] [place] [address] Care Team Providers Care Cloth Drier Name Role Phone Linn Robbins M.D. Primary Care Provider +1- [phone] Encounter Details Date Type Department Care Team (Late st Contact Info) Description 06/02/2024 Results Follow-Up Department of Family Medicine, [facility], in [address] [phone] Linn Robbins M.D. [address] [place] [phone] DX Lumbar Spine 2-3 Views, DX Hips and Pelvis Bilateral 5+ Views Social History Tobacco Use Types Packs/Day Years Used Date Smoking Tobacco: Never Smokeless Tobacco: Never Alcohol Use Standard Drinks/Week Comments Yes 1 (1 standard drink = 0.6 oz pur e alcohol) [facility] Utilities Answer Date Recorded In the past 12 months has [employer], gas, oil, or water [employer] threatened to shut off services in your [...] your living situation today? 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 [address] [place] [phone] Discharge Disposition: Home or Self Care 10/08/2024 2:45 PM CDT Office Visit Department of Family Medicine, [facility], [address] [phone] Linn Robbins M.D. [address] [place] [phone] Discharge Disposition: Home or Self Care documented as of this encounter Visit Diagnoses Not on filedocumented in this encounter Care Teams Cloth Drier Relationship Specialty Start Date End Date Linn Robbins M.D. [address] [place] [phone] PCP - General Family Medicine 09/12/23 documented as of this encounter
--- OUTSIDE RECORDS SUMMARY | 2024-07-02 20:43 | XMS_ITS | Encounter Summary ---
Author Organization [facility] Address [address] [place] [address] Care Team Providers Care Cigar Wrapper Tender Automatic Name Role Phone Linn Robbins M.D. Primary Care Provider +1- [phone] Encounter Details Date Type Department Care Team (Late st Contact Info) Description 07/23/2008 Historical Ophthalmology RST OPH Philip Starr O.D., Ph.D. 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 [address] [place] [phone] Discharge Disposition: Home or Self Care 10/08/2024 2:45 PM CDT Office Visit Department of Family Medicine, [facility], in [address] [phone] Linn Robbins M.D. [address] [place] [phone] Discharge Disposition: Home or Self Care documented as of this encounter Visit Diagnoses Not on filedocumented in this encounter Care Teams Cigar Wrapper Tender Automatic Relationship Specialty Start Date End Date Linn Robbins M.D. [address] [place] [phone] PCP - General Family Medicine 09/12/23 documented as of this encounter
--- OUTSIDE RECORDS SUMMARY | 2024-07-02 20:43 | XMS_ITS | Encounter Summary ---
Author Organization [facility] Address [address] [place] [address] Care Team Providers Care Laborer Cement Gun Placing Name Role Phone Linn Robbins M.D. Primary Care Provider +1- [phone] Encounter Details Date Type Department Care Team (Late st Contact Info) Description 04/09/2005 Historical Ophthalmology RST OPH Philip Starr O.D., Ph.D. 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 [address] [place] [phone] Discharge Disposition: Home or Self Care 10/08/2024 2:45 PM CDT Office Visit Department of Family Medicine, [facility], in [address] [phone] Linn Robbins M.D. [address] [place] [phone] Discharge Disposition: Home or Self Care documented as of this encounter Visit Diagnoses Not on filedocumented in this encounter Care Teams Laborer Cement Gun Placing Relationship Specialty Start Date End Date Linn Robbins M.D. [address] [place] [phone] PCP - General Family Medicine 09/12/23 documented as of this encounter
--- OUTSIDE RECORDS SUMMARY | 2024-07-02 20:43 | XMS_ITS | Encounter Summary ---
Author Organization [facility] Address [address] [place] [address] Care Team Providers Care Dough Raiser Name Role Phone Linn Robbins M.D. Primary Care Provider +1- [phone] Reason for Visit * Outpatient (Routine) - Closed Specialty Diagnoses / Procedures Referred By Contac t Referred To Contact Diagnoses Primary Osteoarthritis Hip Left Pain Sacroiliac Procedures DX Hips and Pelvis Bilateral 5+ Views DX Hips and Pelvis Bilateral 3-4 Views Linn Robbins M.D. [address] [place] [phone] Phone: tel: fax: [facility] Region Referral ID Status Reason Start Date Expiration Date Visits Re quested Visits Authorized [id number] Closed 05/29/2024 08/29/2025 1 1 Encounter Details Date Type Department Care Team (Latest Contact Info) Description 05/29/2024 10:31 AM CDT - 05/29/2024 11:59 PM CDT Hospital Encounter Department of Radiology in [place] [phone] Linn Robbins M.D. [address] [place] [phone] Primary Osteoarthritis Hip Left; Pain Sacroiliac Discharge Disposition: Home or Self Care Social History Tobacco Use Types Packs/Day Years Used Date Smoking Tobacco: Never Smokeless Tobacco: Never Alcohol Use Standard Drinks/Week Comments Yes 1 (1 standard drink = 0.6 oz pur e alcohol) [facility] Utilities Answer Date Recorded In [...] your living situation today? 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 [address] [place] [phone] Discharge Disposition: Home or Self Care 10/08/2024 2:45 PM CDT Office Visit Department of Family [facility], [facility], in [address] [phone] Linn Robbins M.D. [address] [place] [phone] Discharge Disposition: Home or Self Care [...] Sacroiliac documented in this encounter Care Teams Dough Raiser Relationship Specialty Start Date End Date Linn Robbins M.D. [address] [phone] PCP - General Family Medicine 09/12/23 documented as of this encounter
--- OUTSIDE RECORDS SUMMARY | 2024-07-02 20:43 | XMS_ITS | Encounter Summary ---
Author Organization [facility] Address [address] [place] [address] Care Team Providers Care Patternator Name Role Phone Linn Robbins M.D. Primary Care Provider +1- [phone] Encounter Details Date Type Department Care Team (Late st Contact Info) Description 05/18/2007 Historical Ophthalmology RST OPH Philip Starr O.D., Ph.D. 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 [address] [place] [phone] Discharge Disposition: Home or Self Care 10/08/2024 2:45 PM CDT Office Visit Department of Family Medicine, [facility], in [address] [phone] Linn Robbins M.D. [address] [place] [phone] Discharge Disposition: Home or Self Care documented as of this encounter Visit Diagnoses Not on filedocumented in this encounter Care Teams Patternator Relationship Specialty Start Date End Date Linn Robibns M.D. [address] [place] [phone] PCP - General Family Medicine 09/12/23 documented as of this encounter
--- OUTSIDE RECORDS SUMMARY | 2024-07-02 20:44 | XMS_ITS | Encounter Summary ---
Author Organization [facility] Address [address] [place] [address] Care Team Providers Care Radiography Technician Name Role Phone Linn Robbins M.D. Primary Care Provider +1- [phone] Reason for Referral * Outpatient (Routine) - Authorized Specialty Diagnoses / Procedures Referred By Lilian roach Referred To Contact Dermatology Diagnoses Screening Examination Skin Cancer Ashleigh Bell M.D. [address] [place] [phone] Phone: tel: fax: [facility] Region Referral ID Status Reason Start Date Expiration Date V isits Requested Visits Authorized [id number] Authorized 06/27/2024 12/27/2025 1 1 Reason for Visit * Reason Comments Pre-op Exam Hip Referral Derm froilan Infante ed cheeks * Appointment Request (Routine) - Closed Specialty Diagnoses / Procedures Referred By Contteo t Referred To Contact Family Medicine Referral ID Status Reason Start Date Expiration Date Visits Re quested Visits Authorized [id number] Closed 06/27/2024 09/27/2025 1 1 Encounter Details Date Type Department Care Team (Latest Contact Info) Description 06/27/2024 3:00 PM CDT Office Visit Department of Family Medicine, [facility], in [address] [phone] Ashleigh Bell M.D. [address] [place] [phone] Preoperative Exam (Primary Dx); Primary Osteoarthritis Hip Left; Screening Examination Skin Cancer Discharge Disposition: Home or Self Care Social History Tobacco Use Types Packs/Day Years Used Date Smoking Tobacco: Never Smokeless Tobacco: Never Tobacco Cessation:Counseling Given: Not Answered Alcohol Use Standard Drinks/Week Comments Yes 1 (1 standard drink = 0.6 oz pur e alcohol) [facility] [employer] Answer Date Recorded In the past 12 months has e [employer], oil, or water [employer] threatened to shut off services in your [...] your living situation today? 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 [address] [place] [phone] Discharge Disposition: Home or Self Care 10/08/2024 2:45 PM CDT Office Visit Department of Family Medicine, [facility], [address] [phone] Linn Robbins M.D. [address] [place] [phone] Discharge Disposition: Home or Self Care Scheduled [...] M.D. LAB BLOOD ADD-ON Final Resu lt [facility] [address] [place] [address], [facility] CNFL [facility] [place] [address] * CBC with Differential, Blood (06/27/2024 4:04 [...] M.D. LAB BLOOD ADD-ON Final Resu lt [facility] [address] [place] [address], [facility] CNFL [facility] in [address] [address] documented in this encounter Visit Diagnoses Diagnosis Preoperative Exam- Primary Primary Osteoarthritis Hip Left Screening Examination Skin Cancer documented in this encounter Care Teams Radiography Technician Relationship Specialty Start Date End Date Linn Robbins M.D. [address] [place] [phone] PCP - General Family Medicine 09/12/23 documented as of this encounter
--- OUTSIDE RECORDS SUMMARY | 2024-07-02 20:44 | XMS_ITS | Encounter Summary ---
Author Organization [facility] Address [address] [place] [address] Care Team Providers Care Serologist Name Role Phone Linn Robbins M.D. Primary Care Provider +1- [phone] Encounter Details Date Type Department Care Team (Latest Contact Info) Description 06/27/2024 3:50 PM CDT - 06/27/2024 11:59 PM CDT Hospital Encounter Department of Laboratory Medicine in [address] [phone] Ashleigh Bell M.D. [address] [place] [phone] Preoperative Exam Discharge Disposition: Home or Self Care Social History Tobacco Use Types Packs/Day Years Used Date Smoking Tobacco: Never Smokeless Tobacco: Never Alcohol Use Standard Drinks/Week Comments Yes 1 (1 standard drink = 0.6 oz pur e alcohol) [facility] Utilities Answer Date Recorded In the past 12 months has th e electric, gas, oil, or water [employer] threatened to shut off services in your [...] your living situation today? 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 [address] [place] [phone] Discharge Disposition: Home or Self Care 10/08/2024 2:45 PM CDT Office Visit Department of Family Medicine, [facility], in [place], [place] [phone] [place] [address], [place] [phone] Linn Robbins M.D. [address] [phone] Discharge Disposition: Home or Self [...] M.D. LAB BLOOD ADD-ON Final Resu lt [facility] [address] [place] [address], [facility] CNFL [facility] [place] [address] * CBC with Differential, Blood (06/27/2024 4:04 [...] M.D. LAB BLOOD ADD-ON Final Resu lt [facility] [address] [place] [address], [facility] CN[facility] in [address] [address] documented in this encounter Visit Diagnoses Diagnosis Preoperative Exam documented in this encounter Care Teams Serologist Relationship Specialty Start Date End Date Linn Robbins M.D. [address] [place] [phone] PCP - General Family Medicine 09/12/23 documented as of this encounter
[2024-07-02] MEDS: DOCUSATE SODIUM/BENZOCAINE 5 ML ENEMA PR (20:46)
--- NOTE | 2024-07-02 22:20 | CRLHL7_ITS ---
For Patients: As a result of the Century Cures Act, medical imaging exams and procedure reports are released immediately into your electronic medical record. You may view this report before your referring provider. If you have questions, please contact your health care provider. Indication: Constipation. Technique: Abdomen 1 view. Comparison: None. Findings/Impression: Overall moderate colonic stool burden, most prominent within the rectum. No radiographic evidence of obstruction or intraperitoneal free air. Clear lung bases. No acute osseous abnormality. Moderate osteoarthritis of the left hip. Dictated by Marvin Owens MD @ 07/02/2024 11:00:44 PM (Electronically Signed)
== END 2024-07-02 23:19 | disposition home or self-care (01) ==
PROVIDERS: Emergency Provider Family Medicine
DX: K59.00 Constipation, unspecified (principal)
CPT/HCPCS: 74018; 99283; 99284; A9270

== ENCOUNTER 2024-08-27 10:25 | Day surgery (SDC) | payer MEDICARE, SELFPAY ==
[2024-08-27] VITALS (22 sets, daily range): BP systolic 101–150; BP diastolic 54–84; PULSE 45–94; RESP 12–24; TEMP 35.7–36.6; O2SAT 91–100; BMI 21.2
[2024-08-27] MEDS: LACTATED RINGERS 1000 ML 1,000 ML 100 ML IV ×2 (11:10→15:21)
[2024-08-27] MEDS: SODIUM CHLORIDE 0.9 % (FLUSH) 10 ML SYRINGE IVF ×3 (11:10→17:12)
[2024-08-27] MEDS: OXYCODONE (CR) 10 MG TAB.ER.12H PO (11:14)
[2024-08-27] MEDS: ACETAMINOPHEN 500 MG TABLET 1000 MG PO ×2 (11:14→21:13)
--- NOTE | 2024-08-27 12:06 | W.PM.H&PU ---
History & Physical Update History & Physical Update H&P Reviewed and patient assessed: No changes noted
[2024-08-27] MEDS: MIDAZOLAM HCL 1 MG/ML inj IVP (13:15)
[2024-08-27] MEDS: fentaNYL 100 MCG/2 ML inj IVP (13:15)
--- NOTE | 2024-08-27 13:24 | SUR.PREOP ---
TIME?OUT:?1314 PT/RN/MDA?VERIFICATION?OF?SURGICAL?SITE,?PROCEDURE,?AND?CONSENT OBTAINED?PRIOR?TO?INVASIVE?PROCEDURE.
--- NOTE | 2024-08-27 13:30 | P.NB_ITS ---
Nerve Block Nerve Block Time Seen by Provider: 13:18 Date Seen: 08/27/24 Type of block requested by surgeon for post-operative analgesia: KRISTEN/LFCN Side: left Time out performed: Yes Verification of patient name: Yes Verification of date of : Yes Site marking: site marked Name of person performing procedure: Dhaval Continuous monitoring Was continuous monitoring of O2 sat, B/P, quality assurance monitor body, recorded every 15 minutes?: Yes Procedure Checklist: sterile prep, needles and gloves Ultrasound guided. Images saved: Yes Medications given in 5ml increments after negative aspiration: Ropivicaine %: 0.5 mL: 30 Needle gauge: 20 Precedex (mcg): 25 Patient tolerated procedure well: Yes Additional comments: Needle noted below psoas tendon needle noted adjacent to LFCN Block Charges Block Charge (with Pro Fee): Other Periph Nerve Block Use of Ultrasound Machine for Block: Yes- US Guidance/pain block
--- NOTE | 2024-08-27 13:31 | P.ANES_ITS ---
Anesthesia Charges Start Date/Time Anesthesia Start Date: 08/27/24 Anesthesia Start Time: 13:34 Stop Date/Time Anesthesia Stop Date: 08/27/24 Anesthesia Stop Time: 15:59 Summary Extremes of Age - Over 70 or under 1: MDA Coding CPT Codes CPT Codes: ANESTH HIP ARTHROPLASTY - 39044 ([id number]) P2 - PATIENT W/MILD SYST DISEASE, QK - CENTRAL OFFICE FRAME WIRER 2-4 CNCRNT ANES PROC, QX - WHITING CAN WORKER SVC W/ MD MED DIRECTION Additional Codes: Summary - Extremes of Age - Over 70 or under 1: MDA ([id number])
--- NOTE | 2024-08-27 13:31 | W.ANESCHARGE ---
Anesthesia Charges Start Date/Time Anesthesia Start Date: 08/27/24 Anesthesia Start Time: 13:34 Stop Date/Time Anesthesia Stop Date: 08/27/24 Anesthesia Stop Time: 15:59 Summary Extremes of Age - Over 70 or under 1: MDA Coding CPT Codes CPT Codes: ANESTH HIP ARTHROPLASTY - 73843 ([id number]) P2 - PATIENT W/MILD SYST DISEASE, QK - TIRE BAGGER 2-4 CNCRNT ANES PROC, QX - PIVOT END POLISHER SVC W/ MD MED DIRECTION Additional Codes: Summary - Extremes of Age - Over 70 or under 1: MDA ([id number])
--- NOTE | 2024-08-27 13:47 | CRLHL7_ITS ---
For Patients: As a result of the Cures Act, medical imaging exams and procedure reports are released immediately into your electronic medical record. You may view this report before your referring provider. If you have questions, please contact your health care provider. Indication: Hip replacement surgery Technique: AP hip fluoroscopic image. Fluoroscopy time 39.5 seconds. Findings/Impression: Hardware from a left total hip arthroplasty is in satisfactory position. Dictated by Davon Santos MD @ 08/28/2024 11:00:44 AM (Electronically Signed)
--- NOTE | 2024-08-27 13:49 | CRLHL7_ITS ---
For Patients: As a result of the Century Cures Act, medical imaging exams and procedure reports are released immediately into your electronic medical record. You may view this report before your referring provider. If you have questions, please contact your health care provider. INDICATION: Post operative total hip arthroplasty, post operative hip TECHNIQUE: Pelvis radiograph, Hip radiograph 2 views left COMPARISON: 07/02/2024 FINDINGS: Bone: No acute fractures or aggressive bone lesions are identified. The iliac crests are partially excluded. Joint: A left bipolar hip arthroplasty is noted. The visualized sacroiliac joints are unremarkable in appearance. The pubic symphysis is normal in appearance. Soft tissue: Lateral skin, subcutaneous gas and joint gas are present from recent surgery. No radiopaque foreign bodies are seen. There is a linear 7 mm density in the lateral soft tissues of the thigh that may be a clip or overlying artifact. Several calcified fibroids are noted in the pelvis. IMPRESSION: 1. There is an unremarkable postoperative appearance of the hip arthroplasty. Dictated by: Corey Brown MD @ 08/27/2024 18:26:19 (Electronically Signed)
[2024-08-27] MEDS: TRANEXAMIC ACID 100 MG/ML INJ 1000 MG IV (13:57)
[2024-08-27] MEDS: CEFAZOLIN 1 GM inj IVP (13:57)
--- NOTE | 2024-08-27 15:22 | P.ORPRC_ITS ---
Procedure Note Date of procedure: 08/27/24 Procedure: PREOPERATIVE DIAGNOSIS: 1. Left hip osteoarthritis, severe, primary POSTOPERATIVE DIAGNOSIS: 1. Left hip osteoarthritis, severe, primary PROCEDURE: 1. Left total hip arthroplasty-anterior approach 2. 32715 - intraoperative fluoroscopy up to 1 hour. SURGEON: Sundar Rahman MD. SLIP COVER CUTTER: Chaitanya Ding PA-C; Goldie Ferris PA-C - Of note, a skilled miller head assistant wet process was critical for this case to aid in patient positioning, tissue retraction, limb manipulation/positioning, dislocation/relocation, patient safety, and closure. ANESTHESIA: Spinal anesthetic EBL: 250 mL IMPLANTS: DePuy J&J uncemented total hip [place] cup size 48, hole eliminator, +0 neutral liner Actis stem, standard offset, size 5 +1 mm ceramic 32mm head. COMPLICATIONS: None evident INDICATIONS: The patient is a pleasant 83-year-old female who has experienced severe left hip pain and difficulty bearing weight. Workup included x-rays which revealed severe osteoarthrosis in the hip. Given the deformity, the dysfunction, and the pain, as well as the failure of nonoperative management, recommendation was made for surgery. FINDINGS: Full-thickness chondral loss diffusely throughout the femoral head and acetabulum. Moderate effusion upon entering the joint. DESCRIPTION OF PROCEDURE: Following a thorough discussion of risks, benefits, and alternatives consent was obtained and the left hip was marked. The patient was brought to the operating room and placed supine on the operating table. Induction of anesthesia was undertaken. 1 g IV Ancef and 1 g tranexamic acid was administered within 1 hr of incision preoperatively. Proper time-out was performed identifying proper patient, site, procedure. The operative extremity was prepped and draped in the appropriate sterile fashion using ChloraPrep after the patient was positioned on the Gordon table with head in neutral alignment and all bony prominences well padded. C-arm fluoroscopic imaging was utilized to confirm proper pelvis rotation and position, and to get true AP films of both the contralateral left, and the affected left hip. This is for comparison. A longitudinal incision was made starting approximately 1 cm distal to the ASIS, and 3-4 cm lateral. The incision was extended distally aiming toward the lateral border the patella. Sharp incision through skin and bovie cautery through the subcutaneous tissue allowed identification of the TFL fascia. This was sharply divided, and the fascia bluntly released from the muscle fibers as we dissected medial. Upon coming to the medial border, we were able to retract the TFL laterally, and penetrated the deeper fascia and identify the crossing circumflex vessels. These were ligated/cauterized. The rectus was elevated from the capsule, and retractors placed laterally and medially along the femoral neck to help with visualization of the capsule. We then performed an inverted T capsulotomy. The capsule was tagged for later repair. Retractors were placed inside the capsule. The femoral neck was visualized after releasing medially down to the lesser trochanter, along the saddle laterally, and up onto the acetabulum. The femoral neck cut was made in line with our preoperative templating. The head was removed in a single piece, and sized. We turned our attention to acetabular preparation. Initially, the labrum was resected from around the perimeter, the pulvinar was excised, allowing us to visualize the false wall. We started the reaming with a 43 mm reamer. This was medialized down to the true wall. We then enlarged our reamers sequentially up to one size less than the selected cup size. We trialed at the same size and found it to have an excellent fit. The selected cup was then opened, inserted, and impacted in line with the goal of 40-45? of abduction, and 20-25? of anteversion. This was confirmed on C-arm fluoroscopic imaging to be in the appropriate/goal position. Once the cup was placed we placed a hole eliminator and a liner consistent with preop planning. Attention was turned to the femoral preparation. The limb was extended, externally rotated, and adducted. The posteromedial capsule was released, as retractors were placed allowing excellent access to the proximal femur. Initially a gambling box person was followed by canal finder followed by various broaches. We broached sequentially up to size noted above, found it to have excellent rotational control, and trialing various heads and necks, revealed that appropriate neck offset, and the above noted head size provided the greatest stability, and uatsdin of length, and offset. C-arm fluoroscopic imaging confirmed position of the stem, as well as leg lengths, which were compared with the pre procedure all fluoroscopic images. Trial implants were removed, the real femoral stem inserted, as was the ceramic head. After reducing, the leg was placed through range of motion and stability was confirmed anterior, posterior, and lateral. A 3 min Betadine soak was then performed, and thorough irrigation with normal saline followed. Closure of the capsule was performed with #1 PDS. Bleeding was confirmed to be controlled at this stage, and the TFL fascia was closed with #0 strata fix. Subcutaneous, and subcuticular closure was performed with 2-0 Vicryl and 4-0 Monocryl, respectively. Dressings were applied, and the patient was awoken from anesthesia and transferred the PACU in stable condition. A skilled miller head assistant wet process was critical for this case to aid in patient positioning, tissue retraction, proximal femur exposure, limb manipulation/positioning, dislocation/relocation, patient safety, and closure. PLAN: 1. Weight bear as tolerated operative extremity. 2. 23 hr perioperative antibiotics. 3. Ice. 4. PT/OT consults for ambulation assistance/mobility education. 5. Social work consult for discharge planning. 6. DVT prophylaxis with at SCDs and Xarelto x5 days followed by aspirin for a total of 1 month..
--- NOTE | 2024-08-27 16:14 | P.ANES_ITS ---
Anesthesia Charges Start Date/Time Anesthesia Start Date: 08/27/24 Anesthesia Start Time: 13:34 Stop Date/Time Anesthesia Stop Date: 08/27/24 Anesthesia Stop Time: 15:59 Summary Extremes of Age - Over 70 or under 1: CREDIT COLLECTIONS REP Coding CPT Codes CPT Codes: ANESTH HIP ARTHROPLASTY - 35950 ([id number]) P2 - PATIENT W/MILD SYST DISEASE, QK - SKI PATROL DIRECTOR 2-4 CNCRNT ANES PROC, QX - CREDIT COLLECTIONS REP SVC W/ MD MED DIRECTION Additional Codes: Summary - Extremes of Age - Over 70 or under 1: CREDIT COLLECTIONS REP ([id number])
--- NOTE | 2024-08-27 16:14 | W.ANESCHARGE ---
Anesthesia Charges Start Date/Time Anesthesia Start Date: 08/27/24 Anesthesia Start Time: 13:34 Stop Date/Time Anesthesia Stop Date: 08/27/24 Anesthesia Stop Time: 15:59 Summary Extremes of Age - Over 70 or under 1: ENGINEERED WOOD DESIGNER Coding CPT Codes CPT Codes: ANESTH HIP ARTHROPLASTY - 81068 ([id number]) P2 - PATIENT W/MILD SYST DISEASE, QK - TAX DIRECTOR 2-4 CNCRNT ANES PROC, QX - ENGINEERED WOOD DESIGNER SVC W/ MD MED DIRECTION Additional Codes: Summary - Extremes of Age - Over 70 or under 1: ENGINEERED WOOD DESIGNER ([id number])
--- NOTE | 2024-08-27 16:37 | SUR.PHASEI ---
patient met discharge criteria per anesthesia
[2024-08-27] MEDS: HYDROmorphone 0.5 mg/0.5 ml inj IVP (17:04)
[2024-08-27] MEDS: ONDANSETRON 2 MG/ML inj 4 MG IVP ×2 (17:12→21:12)
[2024-08-27] MEDS: SENNOSIDES 1 TAB TABLET 2 TAB PO (21:12)
[2024-08-27] MEDS: OXYCODONE 5 MG TABLET PO (21:13)
[2024-08-27] MEDS: LACTATED RINGERS 1000 ML 1,000 ML 75 ML IV (21:54)
--- NOTE | 2024-08-27 22:11 | PM.IMCN1 ---
Date of Consult Patient: Other Consult date: 08/27/24 Requesting Physician: Orthopedics Primary Care Provider: Linn Robbins MD Consult Narrative Narrative: Agata Espana is a 83 year old female admitted to the hospital for left total hip arthroplasty. Procedure performed by Dr. Rahman today. There were no operative complications. Estimated blood loss is 250 mL. Request consultation for management of medical problems following surgery. Postoperatively she was having quite a bit of pain. She receive some dilaudid and is having relatively severe nausea. She received ondansetron but nausea persistent so she will be tried on Compazine or hydroxyzine to help with the nausea. She is having no abdominal pain. She had no problems with nausea vomiting or abdominal pain prior to surgery Patient reports that she was doing well preoperatively. She has had problems with constipation for which she had a medical appointment 1 month ago. That is improved by her report with laxative therapy. Patient also reports chronic low back pain which is improved with walking but bothers her when she is at rest or bending. She reports that minimally radiates toward both legs but she does not have sciatica, numbness weakness, bowel or bladder problems. Review of Systems Narrative: Generally doing well except as noted above. 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 (NSAID) ?Z79.1 - washing machine striper (current) use of non-steroidal anti-inflammatories (NSAID) (ICD-10) Lumbar degenerative disc disease ?M51.369 - Other intervertebral disc degeneration, lumbar region without mention of lumbar back pain or lower extremity pain (ICD-10) Lumbar facet arthropathy ?M47.816 - Spondylosis without myelopathy or radiculopathy, lumbar region (ICD-10) Osteoarthritis of left hip ?M16.12 - Unilateral primary osteoarthritis, left hip (ICD-10) Osteoarthritis of right hip ?M16.11 - Unilateral primary osteoarthritis, right hip (ICD-10) Health care directive on file ?Z78.9 - Other specified health status (ICD-10) Vitamin D deficient osteomalacia (1941) ?M83.9 - Adult osteomalacia, unspecified (ICD-10) Varicose veins of both lower extremities with pain ?I83.813 - Varicose veins of bilateral lower extremities with pain (ICD-10) Osteoarthritis ?M19.90 - Unspecified osteoarthritis, unspecified site (ICD-10) Irritable bowel syndrome ?K58.9 - Irritable bowel syndrome without diarrhea (ICD-10) History of migraine ?Z86.69 - Personal history of other diseases of the nervous system and sense organs (ICD-10) History of malignant neoplasm of right breast (1984) ?Z85.3 - Personal history of malignant neoplasm of breast (ICD-10) History of colonic polyps (2000) ?Z86.010 - Personal history of colonic polyps (ICD-10) Encounter for counseling regarding advance directives (06/17/04) ?Z71.89 - Other specified counseling (ICD-10) Dyslipidemia ?E78.5 - Hyperlipidemia, unspecified (ICD-10) Surgical History (Updated 08/27/24 @ 22:19 by Ru Maloney MD) S/P total hip arthroplasty ?Z96.649 - Presence of unspecified artificial hip joint (ICD-10) History of phacoemulsification of cataract of both eyes with intraocular lens implantation (2013) ?Z98.41 - Cataract extraction status, right eye (ICD-10) ?Z98.42 - Cataract extraction status, left eye (ICD-10) ?Z96.1 - Presence of intraocular lens (ICD-10) Status post excisional biopsy (2008) ?Z98.890 - Other specified postprocedural states (ICD-10) History of right mastectomy (1984) ?Z90.11 - Acquired absence of right breast and nipple (ICD-10) History of hemorrhoidectomy (1983) ?Z98.890 - Other specified postprocedural states (ICD-10) History of colonoscopy (2015) ?Z98.890 - Other specified postprocedural states (ICD-10) History of appendectomy (1950) ?Z90.49 - Acquired absence of other specified parts of digestive tract (ICD-10) Family History Aunt Breast cancer, Onset Age: 65 Paternal Grandmother Breast cancer, Onset Age: 60 Colon cancer Father Brain cancer Myocardial infarction Uncle Throat cancer Other Depression Parkinson disease Social History (Updated 08/27/24 @ 22:16 by Ru Maloney MD) Narrative: , 2 adult children, retired teacher, 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 Code status is full. Non-smoker Social drinker 3-4/month Exercises daily- walks [employer] Health Care Directive completed 06/17/04 What is your current living situation?: I presently have a place to live Problems where you live: no known problems In the past 12 months, utilities in danger of being shut off: no In past 12 months, lack of transportation kept you from medical appts, meetings, work, or getting things needed for daily living: no In the past 12 mos, have been you worried that your food would run out before you had money to buy more?: never true In the past 12 mos, the food you bought just didn't last and you didn't have money to buy more?: never true Highest level of school completed/degree received: Bachelor's degree Smoking Status: Never smoker Do you use any of these nicotine containing products: None Second hand tobacco smoke exposure: No How often do you have a drink containing alcohol: monthly or less Alcohol type: wine How many standard drinks containing alcohol do you have on a typical day: 1 or 2 How often do you have six or more drinks on one occasion: Never AUDIT-C Alcohol total score: 1 Non-prescribed substance use: denies use Caffeine: Yes How often does anyone, including family, friends and others, physically hurt you: never How often does anyone, including family, friends and others, insult or talk down to you: never How often does anyone, including family, friends and others, threaten you with harm: never How often does anyone, including family, friends and others, scream or curse at you: never service: No Meds Home Medications and Allergies Home Medications ?Medication ?Instructions ?Recorded ?Confirmed ?Type Bifidobacterium infantis 10.5 mg 10.5 mg PO DAILY 05/28/22 08/27/24 History (10 million cell) chewable tablet (Align (B.infantis)) calcium carbonate (Calcium 500) 500 mg PO QDAY 05/28/22 08/27/24 History cholecalciferol (vitamin D3) 10 800 unit PO QDAY 05/28/22 08/27/24 History mcg (400 unit) tablet magnesium citrate 85 mg chewable 85 mg PO DAILY 05/28/22 08/27/24 History tablet omega-3 fatty acids 1 cap PO DAILY 10/06/22 08/27/24 History erythromycin 5 mg/gram (0.5 %) eye 1 applic ophthalmic (eye) ONCE 06/26/24 08/27/24 History ointment acetaminophen 500 mg capsule 500 - 1,000 mg (1 - 2 x 500 mg) PO 08/27/24 Rx Q6H PRN #100 caps aspirin 81 mg tablet,delayed 81 mg PO BID #50 tabs 08/27/24 Rx release oxycodone 5 mg tablet 2.5 - 5 mg (0.5 - 1 x 5 mg) PO 08/27/24 Rx Q4-6H PRN pain #30 tabs rivaroxaban 10 mg tablet 10 mg PO DAILY #4 tabs 08/27/24 Rx sennosides 8.6 mg-docusate sodium 1 - 4 tab-cap (1 - 4 x 8.6-50 mg) 08/27/24 Rx 50 mg tablet (Senna-S) PO BID PRN constipation #60 tabs Allergies Allergy/AdvReac Type Severity Reaction Status Date / Time No Known Allergies Allergy Unknown Unknown Verified 08/27/24 10:33 Exam Narrative: Exam Narrative: She is sleepy having recently received Dilaudid for pain. She arouses to voice. Eyes normal. Oropharynx normal. Neck is supple without mass or adenopathy. Respirations are clear to auscultation without wheezing rales or rhonchi. Cardiovascular: S1, S2, regular rate and rhythm. Abdomen: Bowel sounds active. Abdomen is soft without tenderness. Extremities with intact pulses and sensation she moves both feet and ankles well. Intact pedal pulses. No edema. Const: Vital Signs, click to edit/add: Vital Signs - 24 hr 08/27/24 11:05 08/27/24 13:15 08/27/24 13:20 Temperature 97.9 F Pulse Rate 80 65 58 L Respiratory Rate 16 16 16 Blood Pressure 139/80 130/72 132/71 Pulse Oximetry 96 100 100 Oxygen Delivery Me thod Room Air Nasal Cannula Nasal Cannula Oxygen Flow Rate 2 2 08/27/24 13:25 08/27/24 15:54 08/27/24 16:00 Temperature 97.4 F L 97.4 F L Pulse Rate 55 L 62 61 Respiratory Rate 16 12 12 Blood Pressure 101/57 L 138/75 128/69 Pulse Oximetry 100 95 95 Oxygen Delivery Me thod Nasal Cannula Room Air Room Air Oxygen Flow Rate 2 08/27/24 16:05 08/27/24 16:10 08/27/24 16:15 Temperature 97.4 F L 97.4 F L 97.4 F L Pulse Rate 56 L 51 L 48 L Respiratory Rate 15 16 21 Blood Pressure 120/66 114/62 105/58 L Pulse Oximetry 95 94 93 Oxygen Delivery Me thod Room Air Room Air Room Air Oxygen Flow Rate 08/27/24 16:20 08/27/24 16:45 08/27/24 17:00 Temperature 97.3 F L 96.3 F L 96.6 F L Pulse Rate 49 L 52 L 48 L Respiratory Rate 24 16 16 Blood Pressure 101/55 L 107/54 L 106/56 L Pulse Oximetry 96 96 99 Oxygen Delivery Me thod Room Air Room Air Room Air Oxygen Flow Rate 08/27/24 17:14 08/27/24 17:15 08/27/24 17:30 Temperature 96.8 F L Pulse Rate 50 L 50 L 45 L Respiratory Rate 16 16 16 Blood Pressure 103/55 L 103/55 L 124/58 L Pulse Oximetry 91 91 96 Oxygen Delivery Me thod Room Air Room Air Room Air Oxygen Flow Rate 08/27/24 18:00 08/27/24 18:30 08/27/24 19:30 Temperature 97 F L 97.2 F L Pulse Rate 46 L 76 65 Respiratory Rate 16 16 16 Blood Pressure 115/57 L 117/61 144/64 H Pulse Oximetry 96 97 99 Oxygen Delivery Me thod Room Air Room Air Room Air Oxygen Flow Rate Documenting provider has reviewed patient's vital signs: yes Assessment and Plan Assessment and plan (1) Osteoarthritis of left hip: Problem comment: moderate-severe Status: Acute (2) S/P total hip arthroplasty: Problem comment: Left hip, Dr. Rahman, 08/27/2024, no apparent complications Status: Acute (3) Postoperative nausea: Problem comment: Fairly severe. Status: Acute (4) Lumbar degenerative disc disease: Problem comment: advanced at L4-5. Contributing to chronic back pain Status: Acute (5) Lumbar facet arthropathy: Problem comment: Contributing to chronic back pain Status: Acute (6) Osteoporosis: Problem comment: 11/26/16 Lumbar Tscore-2.5 declines medication Declines DEXA scan Status: Acute (7) Constipation: Problem comment: Chronic problem likely to be worse with opioid pain medicine. Aggressive laxative treatment. Status: Acute Plan 83-year-old female status post hip arthroplasty admitted to the hospital for management of postoperative pain, nausea, constipation, therapy. She is quite symptomatic with her pain and nausea and pain medicines are causing fairly severe sedation. Continue ongoing management of these problems. Anticipate discharge to home with her when symptoms are adequately managed Total Time Spent Total Time Spent: Total time spent is 40 minutes in coordination of care, reviewing outside records, discussing with patient and ongoing management of hip arthroplasty and significant postoperative symptoms
[2024-08-27] MEDS: PROCHLORPERAZINE 5 MG/ML VIAL IV (22:22)
[2024-08-27] MEDS: SODIUM CHLORIDE 0.9 % (FLUSH) 10 ML SYRINGE 5 ML IVF (22:23)
--- NOTE | 2024-08-27 23:38 | PC.NURSE ---
Shift Note: Pt sleepy upon return from PACU. C/o 10/14 pain, PRN Dilaudid IVP given. Although pain was improved, pt experienced increased nausea and emesis x1. PRN Zofran given with minimal effectiveness and order obtained for PRN compazine. Pt states nausea has resolved and is currently tolerating a clear liquid diet. Prefers ice chips. Surgical dressing to left hip C,D,&I with active ice in place. Pedal pulses intact. HR initially bradycardic but is now 80's-90 BPM. Moves well with assist x1 with GB and walker. Hopes to discharge home tomorrow in the care of her .
[2024-08-28] MEDS: CEFAZOLIN 1 GM in 0.9 % SODIUM CHLORIDE Mini-bag 100 ML IVPB ×2 (00:04→08:35)
[2024-08-28 03:00] VITALS: BP 128/66; PULSE 76; RESP 16; TEMP 36.2; O2SAT 97
[2024-08-28] MEDS: ACETAMINOPHEN 500 MG TABLET 1000 MG PO ×2 (03:24→10:57)
[2024-08-28 06:27] LABS: Hematocrit 35.8 % (33.0-51.0); Hemoglobin* 11.2 gm/dL (12.0-16.0); Immature Granulocytes Abs Auto 0.03 K/uL (0.00-0.30); Immature Granulocytes Pct Auto 0.4 %; Lymphocytes Percent Auto 18.1 % (20-44); Mean Corpuscular HGB Conc 31 gm/dL (32-36); Mean Corpuscular Hemoglobin 29 pg (26-34); Mean Corpuscular Volume 91 fL (80-100); Monocytes Percent Auto 8.7 % (0.0-11.0); Neutrophils Percent Auto 72.8 % (42.0-72.0); Platelet Count* 197 K/uL (140-440); RDW Coefficient of Variation % 14.4 % (11.5-15.5); Red Blood Count 3.93 m/uL (4.00-5.20); White Blood Count* 8.06 K/uL (4.50-11.00)
[2024-08-28 06:33] LABS: Slide Review Reflex No
[2024-08-28 06:41] LABS: Potassium* 5.2 mmol/L (3.6-5.1); Sodium* 134 mmol/L (135-149)
[2024-08-28 06:44] LABS: Blood Urea Nitrogen* 15 mg/dL (7-30); Creatinine* 0.6 mg/dL (0.5-1.5); Est. Creatinine Clearance* 34.64; Estimated Glomerular Filt Rate 88 ml/min
--- NOTE | 2024-08-28 06:51 | PC.NURSE ---
End of shift report [id number]: VSS. Afebrile. Denies nausea. Rates pain a /10, pt denies prn pain meds overnight. Left hip dressing is C/D/I, CMS is intact. Pt ambulated 1A, GB, W to bathroom. Intermittent ice applied overnight. Pt is resting in bed, bed alarm on, call light within reach.?
[2024-08-28 07:00] VITALS: BP 131/71; PULSE 81; RESP 16; TEMP 36.6; O2SAT 99
[2024-08-28] MEDS: SENNOSIDES 1 TAB TABLET 2 TAB PO (08:34)
[2024-08-28] MEDS: OXYCODONE 5 MG TABLET PO (08:35)
[2024-08-28] MEDS: RIVAROXABAN 10 MG TABLET PO (08:35)
--- NOTE | 2024-08-28 11:23 | PC.SOCIAL ---
Discharge Planning: Met with pt and in room regarding d/c plan. Pt lives with in their own home in [place]. They shared they have the DME recommended at home already and are pleased with plan for discharge home today. will be available to assist as needed. Pt shared that she was confused by the physician discussion of code status and asked social work lecturer to check to see if her Advance Care Directive is in the chart. Confirmed a copy of her completed healthcare directive is in the [facility] chart. Discussed with pt and the code status clarification process completed by the MD and how this provides different information than the Advance Healthcare Directive. Pt and appreciated the clarification. Pt and are aware of how to contact social work lecturer if there are needs after discharge.
--- NOTE | 2024-08-28 12:23 | P.ORPN_ITS ---
Subjective Subjective Date Seen: 08/28/24 Principal diagnosis: Status postop day 1, left total hip arthroplasty - anterior approach Interval history: Patient reports doing well. No acute events over night. Pain managed with scheduled and PRN medications, ice. She has not feel that she will need oxycodone for pain management. She prefers ibuprofen for pain management due to history of back pain. DVT prophylaxis: Rivaroxaban, SCDs, walking. Denies fevers, chills, aches, N/V, CP, SOB/PATEL, or lightheadedness. Ortho Exam Narrative Exam Narrative: -Patient appears comfortable in recliner; no apparent acute distress -Alert and oriented times 3 -Operative hip swollen; soft tissues supple; no obvious erythema. Ecchymosis minimal. Warmth appropriate -Surgical dressing clean, dry, intact; no obvious drainage, no erythematous streaking peripheral to the bandage. The medial aspect of the bandage within the groin is losing its adhesion to her skin. Grossly intact -Bilateral calves soft and supple; no significant swelling, edema, tenderness, erythema, discoloration, warmth, or palpable cords -2+ DP/PT pulses, intact dermatomes and myotomes distally (5/5 strength). Mild numbness about the lateral femoral cutaneous nerve distribution. Const Vital Signs, click to edit/add: Vital Signs - 24 hr 08/27/24 13:15 08/27/24 13:20 08/27/24 13:25 Temperature Pulse Rate 65 58 L 55 L Pulse Rate [Right Pulse Oximeter] Respiratory Rate 16 16 16 Blood Pressure 130/72 132/71 101/57 L Blood Pressure [Left Arm] Pulse Oximetry 100 100 100 Oxygen Delivery Method Nasal Cannula Nasal Cannula Nasal Cannula Oxygen Flow Rate 2 2 2 08/27/24 15:54 08/27/24 16:00 08/27/24 16:05 Temperature 97.4 F L 97.4 F L 97.4 F L Pulse Rate 62 61 56 L Pulse Rate [Right Pulse Oximeter] Respiratory Rate 12 12 15 Blood Pressure 138/75 128/69 120/66 Blood Pressure [Left Arm] Pulse Oximetry 95 95 95 Oxygen Delivery Method Room Air Room Air Room Air Oxygen Flow Rate 08/27/24 16:10 08/27/24 16:15 08/27/24 16:20 Temperature 97.4 F L 97.4 F L 97.3 F L Pulse Rate 51 L 48 L 49 L Pulse Rate [Right Pulse Oximeter] Respiratory Rate 16 21 24 Blood Pressure 114/62 105/58 L 101/55 L Blood Pressure [Left Arm] Pulse Oximetry 94 93 96 Oxygen Delivery Method Room Air Room Air Room Air Oxygen Flow Rate 08/27/24 16:45 08/27/24 17:00 08/27/24 17:14 Temperature 96.3 F L 96.6 F L 96.8 F L Pulse Rate 52 L 48 L 50 L Pulse Rate [Right Pulse Oximeter] Respiratory Rate 16 16 16 Blood Pressure 107/54 L 106/56 L 103/55 L Blood Pressure [Left Arm] Pulse Oximetry 96 99 91 Oxygen Delivery Method Room Air Room Air Room Air Oxygen Flow Rate 08/27/24 17:15 08/27/24 17:30 08/27/24 18:00 Temperature 97 F L Pulse Rate 50 L 45 L 46 L Pulse Rate [Right Pulse Oximeter] Respiratory Rate 16 16 16 Blood Pressure 103/55 L 124/58 L 115/57 L Blood Pressure [Left Arm] Pulse Oximetry 91 96 96 Oxygen Delivery Method Room Air Room Air Room Air Oxygen Flow Rate 08/27/24 18:30 08/27/24 19:30 08/27/24 20:30 Temperature 97.2 F L 97.6 F Pulse Rate 76 65 94 Pulse Rate [Right Pulse Oximeter] Respiratory Rate 16 16 16 Blood Pressure 117/61 144/64 H 150/84 H Blood Pressure [Left Arm] Pulse Oximetry 97 99 98 Oxygen Delivery Method Room Air Room Air Room Air Oxygen Flow Rate 08/27/24 21:30 08/27/24 22:30 08/27/24 23:00 Temperature Pulse Rate 87 Pulse Rate [Right Pulse Oximeter] Respiratory Rate 16 16 16 Blood Pressure 145/77 H 124/82 Blood Pressure [Left Arm] Pulse Oximetry 99 99 99 Oxygen Delivery Method Room Air Room Air Room Air Oxygen Flow Rate 08/28/24 03:00 08/28/24 07:00 08/28/24 07:00 Temperature 97.1 F L Pulse Rate Pulse Rate [Right Pulse Oximeter] 76 Respiratory Rate 16 16 16 Blood Pressure Blood Pressure [Left Arm] 128/66 Pulse Oximetry 97 99 Oxygen Delivery Method Room Air Room Air Oxygen Flow Rate 08/28/24 07:00 Temperature 97.9 F Pulse Rate Pulse Rate [Right Pulse Oximeter] 81 Respiratory Rate 16 Blood Pressure Blood Pressure [Left Arm] 131/71 Pulse Oximetry 99 Oxygen Delivery Method Room Air Oxygen Flow Rate Assessment and Plan Assessment and plan (1) Osteoarthritis of left hip: Problem details: moderate-severe Status: Acute (2) S/P total hip arthroplasty: Problem details: Left hip, Dr. Rahman, 08/27/2024, no apparent complications Status: Acute (3) Postoperative nausea: Problem details: Fairly severe - resolved, no residual issues postop Status: Acute (4) Lumbar degenerative disc disease: Problem details: advanced at L4-5. Contributing to chronic back pain Status: Acute (5) Lumbar facet arthropathy: Problem details: Contributing to chronic back pain Status: Acute (6) Osteoporosis: Problem details: 11/26/16 Lumbar Tscore-2.5 declines medication Declines DEXA scan Status: Acute (7) Constipation: Problem details: Chronic problem likely to be worse with opioid pain medicine. Aggressive laxat luna treatment. Status: Acute Plan - Complete 23 hour perioperative antibiotics. - PT/OT consult for education and assistance. - Social work consult for discharge planning - Prescribed analgesics as needed - DVT prophylaxis: Rivaroxaban, walking, and SCDs - Anticipation is for discharge to home with today 08/28/2024 if the patient remains medically stable, pain is controlled, and they are safe with mobilization.
--- NOTE | 2024-08-28 13:48 | PC.NURSE ---
Discharge: patient alert/oriented x4. VSS, afebrile this shift. Patient tolerating a reg diet. on RA and ambulating to BR and chair with walker/GB, active ice to op site, dressing C/D/I. Voiding well and passing gas. Patient discharged to home today at 1319 accompanied by spouse. Patients IV removed intact. Discharge instructions given and signed. patient verbalized understanding. Belongings sheet signed.
== END 2024-08-28 13:19 | disposition home or self-care (01) ==
LOC: OR 10:28 → MEDSURG 10:29
PROVIDERS: PCP Family Medicine; Visit Provider Orthopaedic Surgery Sports Medicine
PROC: (CPT 27130; principal; 2024-08-27 12:30)
DX: M16.12 Unilateral primary osteoarthritis, left hip (principal); G89.18 Other acute postprocedural pain; M54.59 Other low back pain; G89.29 Other chronic pain; R11.0 Nausea; M51.369 Other intervertebral disc degeneration, lumbar region without mention of lumbar back pain or lower extremity pain; M81.8 Other osteoporosis without current pathological fracture; K59.09 Other constipation
CPT/HCPCS: 27130; 01214; 36415; 64450; 73501; 73502; 76000; 76942; 82565; 84132; 84295; 84520; 85025; 86850; 86900; 86901; 97110; 97116; 97161; 97165; 97530; 97535; 99100; A9270; C1776; J0330; J0690; J0780; J1100; J1171; J2250; J2405; J2704; J2710; J2795; J3010; J3490; J7120

== ENCOUNTER 2024-10-03 10:30 | Outpatient (RCR) | payer MEDICARE, SELFPAY ==
--- NOTE | 2024-09-05 14:40 | PT.OPEX ---
PT [place] Outpatient Eval PT [facility] Outpatient Eval Start: 09/05/24 11:01 Freq: Status: Active Protocol: Document 09/05/24 11:02 MIKAYLA (Rec: 09/05/24 14:39 [facility] [id number]) E-signed By Paula Newman PT Physical Therapy Outpatient Evaluation Insurance Information Recert Due Date 12/03/24 Insurance Name Medicare B Medical Diagnosis S/P L CAROLA (ANTERIOR APPROACH) 08/27/24 LEFT HIP OA Treating Diagnosis LEFT HIP PAIN LEFT STIFFNESS ANTALGIC GAIT Referring MD PAMELA HELM Subjective Preferred Name JENNIFER (ALEJANDRO-JUAN..[employer]) Subjective PATIENT IS S/P LEFT CAROLA 08/27/24 USING BILATERAL WALKING STICKS AND REPORTING VERY LITTLE PAIN. SHE HAS BEEN PERFORMING THE EXERCISES GIVEN TO HER AND C/O SIGNIFICANT BACK AND ANTERIOR HIP PAIN PERFORMING STRAIGHT LEG RAISE WELL STDG HIP ABD WHERE SHE REPORTS SLIDING HER LEG ACROSS THE FLOOR. SHE HAS BEEN USING HER ICE FREQUENTLY THROUGHOUT THE DAY ALONG WITH PO OTC WITH LIMITED USE OF HER RX PAIN MEDS. SHE IS SLEEPING IN A RECLINER BUT DOES HER EXERCISES IN BED. SHE IS AN AVID WALKER DESCRIBING WALKING WITH HER SPOUSE UPWARDS OF AN HOUR EVERY DAY BEFORE HER DECLINE IN THE LAST 3 MONTHS. SHE IS HOPING TO GET BACK TO HER USUAL ACTIVITIES. 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 Functional Test [id number] Performed & Score TU SEC W/BILATERAL WALKING STICKS AND BUE TO TRANSFERS Assessment Assessment/ PATIENT IS A 83YO REFERRED BY [facility] TO [facility] AND Impression TREAT S/P LEFT CAROLA 08/27/24. PATIENT DEMONSTRATES SIGNS AND SYMPTOMS CONSISTENT WITH S/P LEFT CAROLA CONTRIBUTING TO THEIR FUNCTIONAL IMPAIRMENTS OF LEFT HIP PAIN, DECREASED STRENGTH, INCREASED JOINT STIFFNESS , DIFFICULTY WITH TRANSFERS, ANTALGIC GAIT, STAIRS, AND COMMUNITY AMB. PATIENT DESCRIBES THE FOLLOWING TRIGGERS ALL MOBILITY WHICH ARE ALLEVIATED BY REST, ICE, GENTLE MOTION. PATIENT HAS NOTABLE OBJECTIVE FINDING INCLUDING MODERATE EDEMA ABOUT THE HIP EXTENDING TO FEET, SUPINE AROM HIP FLEX 70, HIP ABD 15, MIN ANTALGIC GAIT WITH BILATERAL WALKING STICKS WHICH ALL ARE CONTRIBUTING TO THE CLINICAL IMPRESSION. PATIENT IS A GOOD CANDIDATE FOR SKILLED PHYSICAL THERAPY TO ADDRESS AFOREMENTIONED DEFICITS ABOVE IN ORDER TO RETURN TO ASYMPTOMATIC STATUS AND RETURN TO UNRESTRICTED MVMTS. INTERVENTION IS NECESSARY BY WAY OF THERAPEUTIC EXERCISE, MANUAL THERAPY, NEUROMUSCULAR RE -EDUCATION, STABILIZATION/PROPRIOCEPTION, MODALITIES FOR SYMPTOM MGMT, PATIENT EDUCATION, DRY NEEDLING PLEASE REFER TO APPROPRIATE SECTION WITHIN THIS EVALUATION FOR COMPLETE LIST OF GOALS AND PLAN OF CARE. DISCHARGE PLAN AND CRITERIA IS FOR PATIENT TO ACHIEVE THE GOALS LISTED BELOW OR UNTIL MAX POTENTIAL MET. PATIENT VERBALIZED UNDERSTANDING AND AGREEABLE TO POC, FREQ, AND GOALS ESTABLISHED. Primary Functional TRANFERS, STAIRS, COMMUNITY DISTANCES, AMB ON A VARIETY Limitations OF SURFACES REQUIRING ASSISTANCE Plan of Care Rehabilitation Good Potential Physical Therapy 1. DECREASE LEFT HIP/THIGH PAIN TO <3/10 WITH ADL'S AND Goals PROGRESSION OF HER PHYSICAL THERAPY PROGRAM OVER THE NEXT 4-6 WEEKS 2. IMPROVE LEFT HIP ROM TO WNL OVER THE NEXT 4-6 WEEKS TO NORMALIZE GAIT MECHANICS, IMPROVE TRANSFERS WITH EASE, AND ASCEND/DESCEND STAIR W/RECIPROCAL GAIT SAFELY 3. IMPROVE LEFT HIP/GLUT/LE/CORE STRENGTH OVER THE NEXT 6-8 WEEKS TO TRANSFERS WITH EASE, AMB W/O AN AD FOR NOT ONLY HOUSEHOLD BUT ALSO COMMUNITY AMB, AND PROLONGED STANDING/WALKING W/O FLARE UP OF PAIN 4. PATIENT WILL BE INDEPENDENT WITH HER INDIVIDUALIZED AND COMPREHENSIVE HEP IN 8-10 WEEKS IN ORDER TO PROGRESS THE ABOVE GOALS, ONGOING SELF MANAGEMENT OF SYMPTOMS, AND ONGOING LEFT HIP ROM/MOBILITY/STRENGTH IMPROVMENT NEEDED FOR FULL RETURN TO DAILY/WORK/PEER CENTERED ACTIVITIES THAT INCLUDE STANDING/WALKING WITHOUT FLARE UP OF PAIN. Treatment Plan/ Dry Needling,Electrical Stimulation,Gait Training,Ice/ Direct Interventions Cold/Vasopneumatic,Joint Mobilization,Manual Therapy, Neuromuscular Re-ed,Self-Care/Home Management, Therapeutic Activities,Therapeutic Exercises Frequency/Duration 1X/WK Patient Will Be Completion of LTG(s),Independent w/HEP Discharged From Therapy Evaluation Billing Untimed Code 20 Treatment Minutes PT Eval No Charge No Complexity Low Certification Information Initial 09/05/24 Certification Date Ending Certification 12/03/24 Date Provider Signature Yes Required Provider Signature POC & Medical Necessity Shows Agreement With Physician NPI Number Write NPI# Here Physician Comment/ : Change Physician Signature Please Sign/Date Here & Date Requested
== END 2024-10-03 11:39 | disposition home or self-care (01) ==
PROVIDERS: PCP Family Medicine; Visit Provider Orthopaedic Surgery Sports Medicine
DX: Z47.1 Aftercare following joint replacement surgery (principal); M16.12 Unilateral primary osteoarthritis, left hip; Z96.642 Presence of left artificial hip joint; M25.552 Pain in left hip; Z51.89 Encounter for other specified aftercare
CPT/HCPCS: 97110; 97112; 97140; 97161; A9270; J2250; J3010